=== PATIENT | female | born 1950 | race Caucasian/White ===

== ENCOUNTER 2021-08-11 05:48 | Inpatient (IN) | payer OTHER ==
[2021-08-11] VITALS (14 sets, daily range): BP systolic 143–176; BP diastolic 61–92
[~2021-08-11] VITALS: Ht 154.9 cm; Wt 71.2 kg
[2021-08-11] MEDS ORDERED: SODIUM CHLORIDE 0.9% 1000ML 1,000 ML IV STA (05:54)
[2021-08-11] MEDS ORDERED: CEFTRIAXONE 1 GM in SODIUM CHLORIDE 0.9% 100 ML IV SCH (06:00)
[2021-08-11] MEDS ORDERED: DEXAMETHASONE SOD PHOS 10 MG/1 ML VIAL ONE ×2 (06:15→06:26)
[2021-08-11] MEDS ORDERED: CEFTRIAXONE SOD 1 GM 50 ML IV SCH (06:15)
[2021-08-11] MEDS ORDERED: SODIUM CHLORIDE 0.9% 50ML 50 ML ONE ×2 (06:27→13:58)
[2021-08-11] MEDS ORDERED: CEFTRIAXONE 1 GM VIAL ONE (06:27)
[2021-08-11] MEDS ORDERED: SODIUM CHLORIDE 0.9% 250ML 0 ML ONE (06:34)
[2021-08-11 06:39] LABS: ALBUMIN 2.6 g/dL (3.5-5.0); ALBUMIN/GLOBULIN RATIO 0.6 (0.8-2.0); CALCIUM 9.1 mg/dL (8.4-10.2); CREATININE, SERUM 0.81 mg/dL (0.57-1.11); MAGNESIUM 1.2 MG/DL (1.3-2.1)
[2021-08-11 06:40] LABS: BASOPHILS # (AUTO) 0.1 (0.0-0.1); BASOPHILS % 0.2 % (0.0-1.0); EOSINOPHILS # (AUTO) 0.4 (0.0-0.4); EOSINOPHILS % 1.7 % (0.0-6.0); HEMATOCRIT 30.7 % (34.2-44.1); HEMOGLOBIN 10.3 g/dL (12.0-16.0); LYMPHOCYTES # (AUTO) 1.6 (1.0-3.2); LYMPHOCYTES % 6.7 % (18.0-39.1); MEAN CORPUSCULAR HEMOGLOBIN 29.8 pg (28-32); MEAN CORPUSCULAR HGB CONC 33.6 g/dL (31-35); MEAN CORPUSCULAR VOLUME 88.7 fL (81-99); MONOCYTES # (AUTO) 0.6 (0.2-0.8); MONOCYTES % 2.4 % (4.4-11.3); NEUTROPHILS # (AUTO) 21.3 (2.1-6.9); NEUTROPHILS % 88.4 % (38.7-80.0); PLATELET COUNT 334 x10e3/uL (140-360); RED BLOOD COUNT 3.46 x10e6/uL (3.6-5.1); RED CELL DISTRIBUTION WIDTH 13.9 % (11.7-14.4)
[2021-08-11] MEDS ORDERED: SODIUM CHLORIDE 0.9% 1000ML 1,000 ML IV SCH (06:45)
[2021-08-11] MEDS ORDERED: MAGNESIUM SULF 1GRAM/DEXTROSE 100 ML IV ONE (06:45)
[2021-08-11 06:51] LABS: CREATINE KINASE MB 3.7 ng/mL (0-5.0)
[2021-08-11 07:02] LABS: INR 2.37; PROTHROMBIN TIME 26.3 seconds (11.9-14.5)
[2021-08-11 07:03] LABS: PARTIAL THROMBOPLASTIN TIME 53.9 seconds (23.8-35.5)
[2021-08-11] MEDS ORDERED: DEXMEDETOMIDINE 100 ML IV ONE ×2 (08:15→09:30)
[2021-08-11] MEDS ORDERED: ENOXAPARIN SOD INJ 60 MG/0.6 ML SYR SC ONE (08:15)
[2021-08-11] MEDS ORDERED: ZOLPIDEM TARTRATE 5 MG TAB PO PRN (08:30)
[2021-08-11 08:40] LABS: EOSINOPHILS % (MANUAL) 3 % (0-7); LYMPHOCYTES % (MANUAL) 4 % (19-48); MONOCYTES % (MANUAL) 2 % (3.4-9.0); NEUTROPHILS % (MANUAL) 91 % (40-74); PLATELET ESTIMATE ADEQUATE; PLATELET MORPHOLOGY COMMENT NORMAL; RBC MORPHOLOGY COMMENT NORMAL
[2021-08-11] MEDS ORDERED: Vancomycin IV 0.75 GM in SODIUM CHLORIDE 0.9% 250ML 250 ML IV SCH (09:00)
[2021-08-11] MEDS: VANCOMYCIN IV SCH ×2 (10:50→22:39)
[2021-08-11] MEDS: SODIUM CHLORIDE 0.9% IV SCH ×2 (10:50→22:39)
[2021-08-11] MEDS ORDERED: IOPAMIDOL 370 MG/ML 200 ML INFUS..BTL INJ ONE (13:58)
[2021-08-11] MEDS ORDERED: MEROPENEM 1 GM in SODIUM CHLORIDE 0.9% 100 ML 100 ML IV SCH (14:00)
[2021-08-11] MEDS: MEROPENEM 1 GM in SODIUM CHLORIDE 0.9% 100 ML IV SCH (17:30)
[2021-08-11] MEDS: APIXABAN 5 MG TABLET PO SCH (17:30)
[2021-08-11] MEDS ORDERED: DEXMEDETOMIDINE 400MCG/NS100ML 100 ML IV PRN (20:15)
[2021-08-12] VITALS (18 sets, daily range): BP systolic 106–174; BP diastolic 57–86
[2021-08-12] MEDS: MEROPENEM 1 GM in SODIUM CHLORIDE 0.9% 100 ML IV SCH ×2 (00:06→23:33)
[2021-08-12] MEDS: HYDRALAZINE HCL 20 MG/ML VIAL IV PRN (00:06)
[2021-08-12 06:39] LABS: BASOPHILS # (AUTO) 0.1 (0.0-0.1); BASOPHILS % 0.2 % (0.0-1.0); HEMATOCRIT 27.1 % (34.2-44.1); HEMOGLOBIN 9.1 g/dL (12.0-16.0); LYMPHOCYTES # (AUTO) 0.6 (1.0-3.2); LYMPHOCYTES % 1.9 % (18.0-39.1); MEAN CORPUSCULAR HGB CONC 33.6 g/dL (31-35); MEAN CORPUSCULAR VOLUME 89.4 fL (81-99); MONOCYTES # (AUTO) 1.1 (0.2-0.8); MONOCYTES % 3.5 % (4.4-11.3); NEUTROPHILS # (AUTO) 28.1 (2.1-6.9); NEUTROPHILS % 93.2 % (38.7-80.0); PLATELET COUNT 282 x10e3/uL (140-360); RED BLOOD COUNT 3.03 x10e6/uL (3.6-5.1); RED CELL DISTRIBUTION WIDTH 14.2 % (11.7-14.4)
[2021-08-12 07:24] LABS: ALBUMIN 2.2 g/dL (3.5-5.0); ALBUMIN/GLOBULIN RATIO 0.5 (0.8-2.0); ANION GAP 14.2 mmol/L (8-16); CALCIUM 8.5 mg/dL (8.4-10.2); CREATININE, SERUM 0.63 mg/dL (0.57-1.11); POTASSIUM 4.2 mmol/L (3.5-5.1)
[2021-08-12] MEDS: DEXAMETHASONE SOD PHOS 10 MG/1 ML VIAL IV SCH (08:16)
[2021-08-12] MEDS: ASCORBIC ACID 500 MG TAB PO SCH (08:24)
[2021-08-12] MEDS: APIXABAN 5 MG TABLET PO SCH (08:24)
[2021-08-12] MEDS: ZINC SULFATE 220 MG CAP PO SCH (08:24)
[2021-08-12] MEDS: CHOLECALCIFEROL 1,000 UNIT TAB PO SCH (08:24)
[2021-08-12] MEDS: ENOXAPARIN SOD INJ 60 MG/0.6 ML SYR SC SCH ×2 (09:12→21:35)
[2021-08-12] MEDS: VANCOMYCIN IV SCH ×2 (10:12→21:44)
[2021-08-12] MEDS: SODIUM CHLORIDE 0.9% IV SCH ×2 (10:12→21:44)
[2021-08-12 10:45] LABS: MONOCYTES % (MANUAL) 2 % (3.4-9.0); NEUTROPHILS % (MANUAL) 98 % (40-74)
[2021-08-12 10:46] LABS: PLATELET ESTIMATE ADEQUATE; PLATELET MORPHOLOGY COMMENT NORMAL; RBC MORPHOLOGY COMMENT NORMAL
[2021-08-12] MEDS ORDERED: FUROSEMIDE INJ 10 MG/ML 4 ML VIAL IV ONE (11:00)
[2021-08-13] VITALS (28 sets, daily range): BP systolic 60–177; BP diastolic 36–79
[2021-08-13] MEDS: HYDRALAZINE HCL 20 MG/ML VIAL IV PRN (01:35)
[2021-08-13 05:21] LABS: BASOPHILS # (AUTO) 0.1 (0.0-0.1); BASOPHILS % 0.3 % (0.0-1.0); HEMATOCRIT 28.6 % (34.2-44.1); HEMOGLOBIN 9.2 g/dL (12.0-16.0); LYMPHOCYTES # (AUTO) 0.5 (1.0-3.2); LYMPHOCYTES % 1.7 % (18.0-39.1); MEAN CORPUSCULAR HEMOGLOBIN 29.6 pg (28-32); MEAN CORPUSCULAR HGB CONC 32.2 g/dL (31-35); MONOCYTES # (AUTO) 0.8 (0.2-0.8); MONOCYTES % 2.8 % (4.4-11.3); NEUTROPHILS # (AUTO) 27.5 (2.1-6.9); NEUTROPHILS % 93.4 % (38.7-80.0); PLATELET COUNT 225 x10e3/uL (140-360); RED BLOOD COUNT 3.11 x10e6/uL (3.6-5.1); RED CELL DISTRIBUTION WIDTH 14.7 % (11.7-14.4)
[2021-08-13 05:42] LABS: ALBUMIN 2.3 g/dL (3.5-5.0); ALBUMIN/GLOBULIN RATIO 0.5 (0.8-2.0); ANION GAP 15.9 mmol/L (8-16); CALCIUM 9.3 mg/dL (8.4-10.2); CREATININE, SERUM 0.83 mg/dL (0.57-1.11); POTASSIUM 3.9 mmol/L (3.5-5.1)
[2021-08-13] MEDS: ASCORBIC ACID 500 MG TAB PO SCH (07:35)
[2021-08-13] MEDS: ZINC SULFATE 220 MG CAP PO SCH (07:36)
[2021-08-13] MEDS: CHOLECALCIFEROL 1,000 UNIT TAB PO SCH (07:36)
[2021-08-13] MEDS: DEXAMETHASONE SOD PHOS 10 MG/1 ML VIAL IV SCH (07:40)
[2021-08-13] MEDS: MEROPENEM 1 GM in SODIUM CHLORIDE 0.9% 100 ML IV SCH ×2 (07:40→16:52)
[2021-08-13] MEDS: ENOXAPARIN SOD INJ 60 MG/0.6 ML SYR SC SCH ×2 (07:40→21:09)
[2021-08-13 09:11] LABS: BAND NEUTROPHILS % (MANUAL) 2 %; LYMPHOCYTES % (MANUAL) 1 % (19-48); MONOCYTES % (MANUAL) 2 % (3.4-9.0); NEUTROPHILS % (MANUAL) 95 % (40-74)
[2021-08-13 09:14] LABS: HYPOCHROMASIA SLIGHT; PLATELET ESTIMATE ADEQUATE; PLATELET MORPHOLOGY COMMENT NORMAL; RBC MORPHOLOGY COMMENT NORMAL
[2021-08-13] MEDS: SODIUM CHLORIDE 0.9% IV SCH ×2 (11:17→22:30)
[2021-08-13] MEDS: VANCOMYCIN IV SCH ×2 (11:17→22:30)
[2021-08-13] MEDS ORDERED: NOREPINEPHRINE 8 MG/D5W 250 ML 250 ML IV SCH (15:15)
[2021-08-13] MEDS ORDERED: LACTATED RINGER'S 1,000 ML INJ ONE (16:45)
[2021-08-13] MEDS: FENTANYL 2000MCG/NS 250 250 ML IV SCH (16:52)
[2021-08-13] MEDS ORDERED: LACTATED RINGER'S 1,000 ML ONE (16:52)
[2021-08-13] MEDS: ROCURONIUM 1250MG/NS 250 250 ML IV PRN (16:53)
[2021-08-13] MEDS: MIDAZOLAM HCL 5MG/ML 10ML VIAL 100 ML IV PRN ×2 (16:53→23:13)
[2021-08-13] MEDS ORDERED: SODIUM BICARBONATE 8.4% SYRING 100 ML ONE (17:06)
[2021-08-13] MEDS: VASOPRESSIN 60 UNIT in DEXTROSE 5% 50ML 57 ML IV SCH (17:11)
[2021-08-13] MEDS ORDERED: SODIUM BICARBONATE 8.4% INJ 50 ML SYR IV ONE (18:00)
[2021-08-13 18:16] LABS: ABG HCO3 29 mmol/L (22-26); ABG PCO2 124 mmHg (35-45); ABG PH 6.98 (7.35-7.45); ABG PO2 118 mmHg (80-105); ABG TCO2 33
[2021-08-13 21:08] LABS: ABG HCO3 31 mmol/L (22-26); ABG PCO2 56 mmHg (35-45); ABG PH 7.37 (7.35-7.45); ABG PO2 171 mmHg (80-105); ABG TCO2 33
[2021-08-14] VITALS (26 sets, daily range): BP systolic 74–147; BP diastolic 42–76
[2021-08-14] MEDS: MEROPENEM 1 GM in SODIUM CHLORIDE 0.9% 100 ML IV SCH ×2 (00:39→08:01)
[2021-08-14] MEDS ORDERED: LACTATED RINGER'S 1,000 ML ONE (01:07)
[2021-08-14] MEDS: FENTANYL 2000MCG/NS 250 250 ML IV SCH ×3 (01:15→18:40)
[2021-08-14 06:26] LABS: ALBUMIN 1.7 g/dL (3.5-5.0); ALBUMIN/GLOBULIN RATIO 0.5 (0.8-2.0); ANION GAP 12.9 mmol/L (8-16); CALCIUM 8.4 mg/dL (8.4-10.2); CREATININE, SERUM 1.33 mg/dL (0.57-1.11); POTASSIUM 3.9 mmol/L (3.5-5.1)
[2021-08-14 06:56] LABS: BASOPHILS % 0.1 % (0.0-1.0); EOSINOPHILS % 0.1 % (0.0-6.0); HEMATOCRIT 23.5 % (34.2-44.1); HEMOGLOBIN 7.5 g/dL (12.0-16.0); LYMPHOCYTES # (AUTO) 0.8 (1.0-3.2); LYMPHOCYTES % 4.3 % (18.0-39.1); MEAN CORPUSCULAR HEMOGLOBIN 29.9 pg (28-32); MEAN CORPUSCULAR HGB CONC 31.9 g/dL (31-35); MEAN CORPUSCULAR VOLUME 93.6 fL (81-99); MONOCYTES # (AUTO) 0.5 (0.2-0.8); MONOCYTES % 2.6 % (4.4-11.3); NEUTROPHILS # (AUTO) 17.8 (2.1-6.9); NEUTROPHILS % 91.9 % (38.7-80.0); PLATELET COUNT 162 x10e3/uL (140-360); RED BLOOD COUNT 2.51 x10e6/uL (3.6-5.1); RED CELL DISTRIBUTION WIDTH 14.9 % (11.7-14.4)
[2021-08-14] MEDS: MIDAZOLAM HCL 5MG/ML 10ML VIAL 100 ML IV PRN ×2 (07:15→18:42)
[2021-08-14] MEDS: ZINC SULFATE 220 MG CAP PO SCH (08:02)
[2021-08-14] MEDS: ASCORBIC ACID 500 MG TAB PO SCH (08:02)
[2021-08-14] MEDS: ENOXAPARIN SOD INJ 60 MG/0.6 ML SYR SC SCH ×2 (08:02→21:00)
[2021-08-14] MEDS: DEXAMETHASONE SOD PHOS 10 MG/1 ML VIAL IV SCH (08:02)
[2021-08-14] MEDS: CHOLECALCIFEROL 1,000 UNIT TAB PO SCH (08:02)
[2021-08-14] MEDS: SODIUM CHLORIDE 0.9% IV SCH (10:33)
[2021-08-14] MEDS: VANCOMYCIN IV SCH (10:33)
[2021-08-14] MEDS ORDERED: MEROPENEM 1 GM in SODIUM CHLORIDE 0.9% 100 ML IV SCH ×2 (11:45→20:00)
[2021-08-14] MEDS ORDERED: DEXTROSE 5% 2,000 ML IV ONE (12:00)
[2021-08-14 14:55] LABS: CLARITY,URINE SL CLOUDY (CLEAR); COLOR,URINE AMBER (YELLOW); KETONES,URINE TRACE (NEGATIVE); LEUKOCYTE ESTERASE ,URINE NEGATIVE (NEGATIVE); NITRITE,URINE NEGATIVE (NEGATIVE); PROTEIN,URINE DIPSTICK 2+ (NEGATIVE); URINE UROBILINOGEN 0.2 mg/dL (0.2 - 1)
[2021-08-14 15:06] LABS: BACTERIA,URINE MODERATE /HPF; RBC,URINE 21-50 /HPF (0-5)
[2021-08-14 15:18] LABS: CREATININE,URINE RANDOM 97.65 mg/dL (47-110)
[2021-08-14 15:19] LABS: SODIUM,URINE < 20 mmol/L
[2021-08-14 15:43] LABS: ABG HCO3 26 mmol/L (22-26); ABG PCO2 53 mmHg (35-45); ABG PO2 125 mmHg (80-105); ABG TCO2 27
[2021-08-14] MEDS: VASOPRESSIN 60 UNIT in DEXTROSE 5% 50ML 57 ML IV SCH (17:00)
[2021-08-14] MEDS: MEROPENEM 500 MG in SODIUM CHLORIDE 0.9% 50ML 50 ML IV SCH (17:00)
[2021-08-14] MEDS ORDERED: SUCCINYLCHOLINE CHLORIDE 20 MG/ML 10ML VIAL ONE (17:56)
[2021-08-14] MEDS ORDERED: ETOMIDATE 2 MG/ML 10 ML INJ IV ONE (17:56)
[2021-08-14] MEDS ORDERED: VECURONIUM BROMIDE FOR INJ 20 MG VIAL ONE (17:56)
[2021-08-14] MEDS ORDERED: MIDAZOLAM HCL 2 MG/2 ML VIAL ONE (17:56)
[2021-08-14] MEDS ORDERED: WATER STERILE 10 ML VIAL ONE (17:56)
[2021-08-14] MEDS: DEXTROSE 5% 1,000 ML IV SCH (20:30)
[2021-08-15] VITALS (29 sets, daily range): BP systolic 84–146; BP diastolic 41–73
[2021-08-15] MEDS: MEROPENEM 500 MG in SODIUM CHLORIDE 0.9% 50ML 50 ML IV SCH ×3 (00:12→15:34)
[2021-08-15] MEDS: MIDAZOLAM HCL 5MG/ML 10ML VIAL 100 ML IV PRN ×3 (00:40→15:02)
[2021-08-15 06:28] LABS: BASOPHILS % 0.2 % (0.0-1.0); EOSINOPHILS % 0.1 % (0.0-6.0); HEMOGLOBIN 7.1 g/dL (12.0-16.0); LYMPHOCYTES # (AUTO) 0.9 (1.0-3.2); LYMPHOCYTES % 4.8 % (18.0-39.1); MEAN CORPUSCULAR HEMOGLOBIN 29.1 pg (28-32); MEAN CORPUSCULAR HGB CONC 31.1 g/dL (31-35); MEAN CORPUSCULAR VOLUME 93.4 fL (81-99); MONOCYTES # (AUTO) 0.3 (0.2-0.8); MONOCYTES % 1.7 % (4.4-11.3); NEUTROPHILS % 92.3 % (38.7-80.0); PLATELET COUNT 143 x10e3/uL (140-360); RED BLOOD COUNT 2.44 x10e6/uL (3.6-5.1); RED CELL DISTRIBUTION WIDTH 15.1 % (11.7-14.4)
[2021-08-15] MEDS: DEXTROSE 5% 1,000 ML IV SCH (06:31)
[2021-08-15 06:37] LABS: HEMATOCRIT 22.8 % (34.2-44.1)
[2021-08-15 06:47] LABS: ALBUMIN 1.5 g/dL (3.5-5.0); ALBUMIN/GLOBULIN RATIO 0.4 (0.8-2.0); CALCIUM 7.8 mg/dL (8.4-10.2); CREATININE, SERUM 1.73 mg/dL (0.57-1.11)
[2021-08-15] MEDS: DEXAMETHASONE SOD PHOS 10 MG/1 ML VIAL IV SCH (07:59)
[2021-08-15] MEDS: ASCORBIC ACID 500 MG TAB PO SCH (07:59)
[2021-08-15] MEDS: ENOXAPARIN SOD INJ 60 MG/0.6 ML SYR SC SCH ×2 (08:00→20:59)
[2021-08-15] MEDS: FENTANYL 2000MCG/NS 250 250 ML IV SCH ×2 (08:00→20:00)
[2021-08-15] MEDS: CHOLECALCIFEROL 1,000 UNIT TAB PO SCH (08:00)
[2021-08-15] MEDS: ZINC SULFATE 220 MG CAP PO SCH (08:00)
[2021-08-15 08:54] LABS: ABG HCO3 24 mmol/L (22-26); ABG PCO2 48 mmHg (35-45); ABG PO2 103 mmHg (80-105); ABG TCO2 25
[2021-08-15] MEDS ORDERED: SODIUM CHLORIDE 0.9% 1000ML 1,000 ML IV SCH (10:30)
[2021-08-15] MEDS: VASOPRESSIN 60 UNIT in DEXTROSE 5% 50ML 57 ML IV SCH (17:00)
[2021-08-15] MEDS: ROCURONIUM 1250MG/NS 250 250 ML IV PRN (20:00)
[2021-08-16] VITALS (30 sets, daily range): BP systolic 91–140; BP diastolic 39–61
[2021-08-16 05:06] LABS: BASOPHILS % 0.2 % (0.0-1.0); HEMATOCRIT 24.2 % (34.2-44.1); HEMOGLOBIN 7.6 g/dL (12.0-16.0); LYMPHOCYTES # (AUTO) 0.9 (1.0-3.2); LYMPHOCYTES % 5.1 % (18.0-39.1); MEAN CORPUSCULAR HEMOGLOBIN 29.7 pg (28-32); MEAN CORPUSCULAR HGB CONC 31.4 g/dL (31-35); MEAN CORPUSCULAR VOLUME 94.5 fL (81-99); MONOCYTES # (AUTO) 0.6 (0.2-0.8); MONOCYTES % 3.1 % (4.4-11.3); NEUTROPHILS # (AUTO) 15.9 (2.1-6.9); NEUTROPHILS % 90.5 % (38.7-80.0); PLATELET COUNT 121 x10e3/uL (140-360); RED BLOOD COUNT 2.56 x10e6/uL (3.6-5.1)
[2021-08-16 05:27] LABS: ALBUMIN 1.7 g/dL (3.5-5.0); ALBUMIN/GLOBULIN RATIO 0.5 (0.8-2.0); ANION GAP 11.1 mmol/L (8-16); CALCIUM 7.9 mg/dL (8.4-10.2); CREATININE, SERUM 2.03 mg/dL (0.57-1.11); MAGNESIUM 1.9 MG/DL (1.3-2.1); PHOSPHORUS 4.6 MG/DL (2.3-4.7); POTASSIUM 4.1 mmol/L (3.5-5.1)
[2021-08-16] MEDS: FENTANYL 2000MCG/NS 250 250 ML IV SCH ×2 (06:00→16:41)
[2021-08-16 08:22] LABS: ABG HCO3 27 mmol/L (22-26); ABG PCO2 68 mmHg (35-45); ABG PO2 46 mmHg (80-105); ABG TCO2 29
[2021-08-16] MEDS: CHOLECALCIFEROL 1,000 UNIT TAB PO SCH (09:00)
[2021-08-16] MEDS ORDERED: BUMETANIDE INJ 0.25MG/ML 4ML VIAL IV ONE (09:30)
[2021-08-16] MEDS: DEXAMETHASONE SOD PHOS 10 MG/1 ML VIAL IV SCH (10:08)
[2021-08-16] MEDS: MEROPENEM 500 MG in SODIUM CHLORIDE 0.9% 50ML 50 ML IV SCH ×5 (10:08→23:57)
[2021-08-16] MEDS: ASCORBIC ACID 500 MG TAB PO SCH (10:08)
[2021-08-16] MEDS: ZINC SULFATE 220 MG CAP PO SCH (10:09)
[2021-08-16] MEDS ORDERED: ALBUMIN 5% 250ML 500 ML IV ONE (11:00)
[2021-08-16] MEDS: BUMETANIDE 10 MG in SODIUM CHLORIDE 0.9% 100 ML 60 ML IV SCH ×2 (12:00→22:09)
[2021-08-16] MEDS: MIDAZOLAM HCL 5MG/ML 10ML VIAL 100 ML IV PRN ×3 (12:24→22:10)
[2021-08-16] MEDS ORDERED: SODIUM CHLORIDE 0.9% 1000ML 1,000 ML ONE (13:23)
[2021-08-16 15:59] LABS: ABG HCO3 26 mmol/L (22-26); ABG PCO2 62 mmHg (35-45); ABG PH 7.24 (7.35-7.45); ABG PO2 120 mmHg (80-105); ABG TCO2 28
[2021-08-16] MEDS ORDERED: VASOPRESSIN 60 UNIT in DEXTROSE 5% 50ML 57 ML IV PRN (16:45)
[2021-08-16] MEDS: METOCLOPRAMIDE HCL 10 MG/2ML VIAL IV SCH (22:09)
[2021-08-17] VITALS (29 sets, daily range): BP systolic 111–145; BP diastolic 42–59
[2021-08-17] MEDS ORDERED: ALTEPLASE RECOMBINANT 2 MG/2 ML VIAL IV PRN (00:15)
[2021-08-17] MEDS ORDERED: ALTEPLASE RECOMBINANT 2 MG/2 ML VIAL ONE (00:26)
[2021-08-17] MEDS: FENTANYL 2000MCG/NS 250 250 ML IV SCH ×4 (01:58→22:18)
[2021-08-17] MEDS: MIDAZOLAM HCL 5MG/ML 10ML VIAL 100 ML IV PRN ×4 (03:11→18:14)
[2021-08-17 05:04] LABS: BASOPHILS % 0.1 % (0.0-1.0); HEMOGLOBIN 7.2 g/dL (12.0-16.0); LYMPHOCYTES # (AUTO) 0.9 (1.0-3.2); LYMPHOCYTES % 6.4 % (18.0-39.1); MEAN CORPUSCULAR HEMOGLOBIN 29.8 pg (28-32); MEAN CORPUSCULAR HGB CONC 31.7 g/dL (31-35); MEAN CORPUSCULAR VOLUME 93.8 fL (81-99); MONOCYTES # (AUTO) 0.7 (0.2-0.8); MONOCYTES % 5.3 % (4.4-11.3); NEUTROPHILS # (AUTO) 11.6 (2.1-6.9); NEUTROPHILS % 85.1 % (38.7-80.0); PLATELET COUNT 109 x10e3/uL (140-360); RED BLOOD COUNT 2.42 x10e6/uL (3.6-5.1); RED CELL DISTRIBUTION WIDTH 14.8 % (11.7-14.4)
[2021-08-17 05:06] LABS: HEMATOCRIT 22.7 % (34.2-44.1)
[2021-08-17 05:28] LABS: ALBUMIN 2.4 g/dL (3.5-5.0); ALBUMIN/GLOBULIN RATIO 0.8 (0.8-2.0); ANION GAP 14.3 mmol/L (8-16); CALCIUM 8.1 mg/dL (8.4-10.2); CREATININE, SERUM 2.18 mg/dL (0.57-1.11); POTASSIUM 4.3 mmol/L (3.5-5.1)
[2021-08-17] MEDS: BUMETANIDE 10 MG in SODIUM CHLORIDE 0.9% 100 ML 60 ML IV SCH (07:41)
[2021-08-17] MEDS: MEROPENEM 500 MG in SODIUM CHLORIDE 0.9% 50ML 50 ML IV SCH ×2 (07:53→15:18)
[2021-08-17 08:15] LABS: ABG HCO3 30 mmol/L (22-26); ABG PCO2 64 mmHg (35-45); ABG PH 7.28 (7.35-7.45); ABG PO2 163 mmHg (80-105); ABG TCO2 32
[2021-08-17] MEDS: METOCLOPRAMIDE HCL 10 MG/2ML VIAL IV SCH ×2 (08:48→21:12)
[2021-08-17] MEDS: DEXAMETHASONE SOD PHOS 10 MG/1 ML VIAL IV SCH (08:48)
[2021-08-17] MEDS: ZINC SULFATE 220 MG CAP PO SCH (08:48)
[2021-08-17] MEDS: ASCORBIC ACID 500 MG TAB PO SCH (08:48)
[2021-08-17] MEDS: CHOLECALCIFEROL 1,000 UNIT TAB PO SCH (08:48)
[2021-08-17] MEDS ORDERED: ALBUMIN 5% 0.05 GM/ML BTL IV ONE (09:45)
[2021-08-17] MEDS ORDERED: HEPARIN 25,000 UNIT 1,000 UNIT in DEXTROSE 5% 250ML 250 ML IV SCH (15:15)
[2021-08-17] MEDS ORDERED: HEPARIN SOD (PORCINE) 5,000 UNIT/ML VIAL IV ONE (15:45)
[2021-08-17] MEDS: HEPARIN 25,000 UNIT 1,000 UNIT in DEXTROSE 5% 250ML 250 ML IV SCH (15:56)
[2021-08-17] MEDS: ROCURONIUM 1250MG/NS 250 250 ML IV PRN (23:34)
[2021-08-18] VITALS (25 sets, daily range): BP systolic 108–189; BP diastolic 40–67
[2021-08-18] MEDS: MEROPENEM 500 MG in SODIUM CHLORIDE 0.9% 50ML 50 ML IV SCH ×4 (01:00→23:48)
[2021-08-18 04:39] LABS: BASOPHILS % 0.1 % (0.0-1.0); EOSINOPHILS # (AUTO) 0.1 (0.0-0.4); EOSINOPHILS % 0.4 % (0.0-6.0); LYMPHOCYTES # (AUTO) 0.9 (1.0-3.2); LYMPHOCYTES % 7.1 % (18.0-39.1); MEAN CORPUSCULAR HEMOGLOBIN 29.5 pg (28-32); MEAN CORPUSCULAR HGB CONC 32.4 g/dL (31-35); MONOCYTES # (AUTO) 0.6 (0.2-0.8); MONOCYTES % 4.4 % (4.4-11.3); NEUTROPHILS # (AUTO) 10.7 (2.1-6.9); NEUTROPHILS % 82.3 % (38.7-80.0); PLATELET COUNT 115 x10e3/uL (140-360); RED BLOOD COUNT 2.34 x10e6/uL (3.6-5.1); RED CELL DISTRIBUTION WIDTH 14.8 % (11.7-14.4)
[2021-08-18 04:42] LABS: HEMATOCRIT 21.3 % (34.2-44.1)
[2021-08-18 04:43] LABS: HEMOGLOBIN 6.9 g/dL (12.0-16.0)
[2021-08-18] MEDS: BUMETANIDE 10 MG in SODIUM CHLORIDE 0.9% 100 ML 60 ML IV SCH ×3 (04:55→14:16)
[2021-08-18 04:58] LABS: ALBUMIN 2.5 g/dL (3.5-5.0); ALBUMIN/GLOBULIN RATIO 0.9 (0.8-2.0); ANION GAP 16.9 mmol/L (8-16); CALCIUM 8.1 mg/dL (8.4-10.2); CREATININE, SERUM 1.87 mg/dL (0.57-1.11); POTASSIUM 3.9 mmol/L (3.5-5.1)
[2021-08-18] MEDS: FENTANYL 2000MCG/NS 250 250 ML IV SCH ×3 (05:01→19:40)
[2021-08-18] MEDS: MIDAZOLAM HCL 5MG/ML 10ML VIAL 100 ML IV PRN ×4 (05:01→22:18)
[2021-08-18] MEDS: ZINC SULFATE 220 MG CAP PO SCH (08:18)
[2021-08-18] MEDS: METOCLOPRAMIDE HCL 10 MG/2ML VIAL IV SCH ×2 (08:18→21:51)
[2021-08-18] MEDS: DEXAMETHASONE SOD PHOS 10 MG/1 ML VIAL IV SCH (08:18)
[2021-08-18] MEDS: CHOLECALCIFEROL 1,000 UNIT TAB PO SCH (08:18)
[2021-08-18] MEDS: ASCORBIC ACID 500 MG TAB PO SCH (08:18)
[2021-08-18] MEDS ORDERED: ACETAMINOPHEN 325 MG TAB PO STA (08:37)
[2021-08-18] MEDS ORDERED: SODIUM CHLORIDE 0.9% 250ML 250 ML IV ONE (08:45)
[2021-08-18 09:39] LABS: ABG HCO3 31 mmol/L (22-26); ABG PCO2 47 mmHg (35-45); ABG PH 7.43 (7.35-7.45); ABG PO2 77 mmHg (80-105); ABG TCO2 33
[2021-08-18] MEDS: HEPARIN 25,000 UNIT 1,000 UNIT in DEXTROSE 5% 250ML 250 ML IV SCH (15:30)
[2021-08-18] MEDS: HYDRALAZINE HCL 20 MG/ML VIAL IV PRN (17:54)
[2021-08-18] MEDS: ROCURONIUM 1250MG/NS 250 250 ML IV PRN (17:55)
[2021-08-19] VITALS (26 sets, daily range): BP systolic 108–163; BP diastolic 35–60
[2021-08-19] MEDS: FENTANYL 2000MCG/NS 250 250 ML IV SCH ×3 (02:24→14:21)
[2021-08-19] MEDS: BUMETANIDE 10 MG in SODIUM CHLORIDE 0.9% 100 ML 60 ML IV SCH ×3 (03:08→20:07)
[2021-08-19] MEDS: HEPARIN 25,000 UNIT 1,000 UNIT in DEXTROSE 5% 250ML 250 ML IV SCH (03:23)
[2021-08-19] MEDS: MIDAZOLAM HCL 5MG/ML 10ML VIAL 100 ML IV PRN ×2 (03:59→09:41)
[2021-08-19 06:56] LABS: BASOPHILS % 0.3 % (0.0-1.0); EOSINOPHILS # (AUTO) 0.4 (0.0-0.4); EOSINOPHILS % 2.5 % (0.0-6.0); HEMATOCRIT 26.1 % (34.2-44.1); HEMOGLOBIN 8.8 g/dL (12.0-16.0); LYMPHOCYTES # (AUTO) 1.5 (1.0-3.2); LYMPHOCYTES % 9.4 % (18.0-39.1); MEAN CORPUSCULAR HEMOGLOBIN 28.4 pg (28-32); MEAN CORPUSCULAR HGB CONC 33.7 g/dL (31-35); MEAN CORPUSCULAR VOLUME 84.2 fL (81-99); MONOCYTES # (AUTO) 0.5 (0.2-0.8); MONOCYTES % 3.4 % (4.4-11.3); NEUTROPHILS # (AUTO) 12.1 (2.1-6.9); NEUTROPHILS % 78.5 % (38.7-80.0); PLATELET COUNT 117 x10e3/uL (140-360); RED CELL DISTRIBUTION WIDTH 19.1 % (11.7-14.4)
[2021-08-19 07:02] LABS: ALBUMIN 2.2 g/dL (3.5-5.0); ALBUMIN/GLOBULIN RATIO 0.8 (0.8-2.0); ANION GAP 15.4 mmol/L (8-16); CALCIUM 8.2 mg/dL (8.4-10.2); CREATININE, SERUM 1.49 mg/dL (0.57-1.11); POTASSIUM 3.4 mmol/L (3.5-5.1)
[2021-08-19 09:02] LABS: ABG PCO2 59 mmHg (35-45); ABG PH 7.43 (7.35-7.45); ABG PO2 61 mmHg (80-105)
[2021-08-19 09:03] LABS: ABG HCO3 39 mmol/L (22-26); ABG TCO2 41
[2021-08-19] MEDS: ZINC SULFATE 220 MG CAP PO SCH (09:39)
[2021-08-19] MEDS: CHOLECALCIFEROL 1,000 UNIT TAB PO SCH (09:39)
[2021-08-19] MEDS: MEROPENEM 500 MG in SODIUM CHLORIDE 0.9% 50ML 50 ML IV SCH ×2 (09:39→18:23)
[2021-08-19] MEDS: METOCLOPRAMIDE HCL 10 MG/2ML VIAL IV SCH (09:39)
[2021-08-19] MEDS: ASCORBIC ACID 500 MG TAB PO SCH (09:39)
[2021-08-19] MEDS: NOREPINEPHRINE 8 MG/D5W 250 ML 250 ML IV SCH (10:30)
[2021-08-19] MEDS: LINEZOLID 600 MG/D5W 300ML 300 ML IV SCH (12:40)
[2021-08-19] MEDS: ALBUMIN 25% 12.5GM 0.25 GM/ML BTL IV SCH (12:58)
[2021-08-20] VITALS (24 sets, daily range): BP systolic 99–144; BP diastolic 39–56
[2021-08-20] MEDS: ALBUMIN 25% 12.5GM 0.25 GM/ML BTL IV SCH ×2 (00:18→06:37)
[2021-08-20] MEDS: LINEZOLID 600 MG/D5W 300ML 300 ML IV SCH ×2 (00:18→11:56)
[2021-08-20] MEDS: METOCLOPRAMIDE HCL 10 MG/2ML VIAL IV SCH ×3 (00:18→22:34)
[2021-08-20] MEDS: MEROPENEM 500 MG in SODIUM CHLORIDE 0.9% 50ML 50 ML IV SCH ×3 (00:19→18:04)
[2021-08-20] MEDS: BUMETANIDE 10 MG in SODIUM CHLORIDE 0.9% 100 ML 60 ML IV SCH (06:38)
[2021-08-20 07:05] LABS: BASOPHILS % 0.2 % (0.0-1.0); EOSINOPHILS # (AUTO) 1.7 (0.0-0.4); EOSINOPHILS % 10.8 % (0.0-6.0); HEMATOCRIT 25.5 % (34.2-44.1); LYMPHOCYTES # (AUTO) 1.4 (1.0-3.2); LYMPHOCYTES % 9.1 % (18.0-39.1); MEAN CORPUSCULAR HEMOGLOBIN 27.4 pg (28-32); MEAN CORPUSCULAR HGB CONC 31.4 g/dL (31-35); MEAN CORPUSCULAR VOLUME 87.3 fL (81-99); MONOCYTES # (AUTO) 0.5 (0.2-0.8); NEUTROPHILS # (AUTO) 11.2 (2.1-6.9); NEUTROPHILS % 72.7 % (38.7-80.0); PLATELET COUNT 132 x10e3/uL (140-360); RED BLOOD COUNT 2.92 x10e6/uL (3.6-5.1); RED CELL DISTRIBUTION WIDTH 18.7 % (11.7-14.4)
[2021-08-20 07:24] LABS: ALBUMIN 3.5 g/dL (3.5-5.0); ALBUMIN/GLOBULIN RATIO 1.3 (0.8-2.0); ANION GAP 15.5 mmol/L (8-16); CALCIUM 8.8 mg/dL (8.4-10.2); CREATININE, SERUM 1.43 mg/dL (0.57-1.11); POTASSIUM 3.5 mmol/L (3.5-5.1)
[2021-08-20] MEDS: CHOLECALCIFEROL 1,000 UNIT TAB PO SCH (09:00)
[2021-08-20 09:02] LABS: ABG HCO3 44 mmol/L (22-26); ABG PCO2 62 mmHg (35-45); ABG PH 7.45 (7.35-7.45); ABG PO2 58 mmHg (80-105); ABG TCO2 45
[2021-08-20] MEDS: NOREPINEPHRINE 8 MG/D5W 250 ML 250 ML IV SCH (10:30)
[2021-08-20] MEDS: MIDAZOLAM HCL 5MG/ML 10ML VIAL 100 ML IV PRN ×2 (10:45→15:39)
[2021-08-20] MEDS: FENTANYL 2000MCG/NS 250 250 ML IV SCH (10:45)
[2021-08-20] MEDS: ZINC SULFATE 220 MG CAP PO SCH (11:45)
[2021-08-20] MEDS: ASCORBIC ACID 500 MG TAB PO SCH (11:45)
[2021-08-20] MEDS: HEPARIN 25,000 UNIT 1,000 UNIT in DEXTROSE 5% 250ML 250 ML IV SCH (19:37)
[2021-08-21] VITALS (24 sets, daily range): BP systolic 90–144; BP diastolic 38–56
[2021-08-21] MEDS: MEROPENEM 500 MG in SODIUM CHLORIDE 0.9% 50ML 50 ML IV SCH ×4 (00:46→23:44)
[2021-08-21] MEDS: LINEZOLID 600 MG/D5W 300ML 300 ML IV SCH ×3 (00:46→23:43)
[2021-08-21 06:30] LABS: BASOPHILS % 0.2 % (0.0-1.0); EOSINOPHILS # (AUTO) 1.3 (0.0-0.4); EOSINOPHILS % 10.2 % (0.0-6.0); HEMATOCRIT 24.4 % (34.2-44.1); HEMOGLOBIN 7.8 g/dL (12.0-16.0); LYMPHOCYTES # (AUTO) 0.9 (1.0-3.2); LYMPHOCYTES % 7.1 % (18.0-39.1); MEAN CORPUSCULAR HEMOGLOBIN 28.5 pg (28-32); MEAN CORPUSCULAR VOLUME 89.1 fL (81-99); MONOCYTES # (AUTO) 0.4 (0.2-0.8); MONOCYTES % 3.3 % (4.4-11.3); NEUTROPHILS # (AUTO) 9.8 (2.1-6.9); NEUTROPHILS % 76.3 % (38.7-80.0); PLATELET COUNT 130 x10e3/uL (140-360); RED BLOOD COUNT 2.74 x10e6/uL (3.6-5.1); RED CELL DISTRIBUTION WIDTH 18.6 % (11.7-14.4)
[2021-08-21 07:05] LABS: ALBUMIN 2.9 g/dL (3.5-5.0); ANION GAP 14.9 mmol/L (8-16); CALCIUM 8.8 mg/dL (8.4-10.2); CREATININE, SERUM 1.36 mg/dL (0.57-1.11); POTASSIUM 3.9 mmol/L (3.5-5.1)
[2021-08-21 07:07] LABS: ABG PH 7.38 (7.35-7.45)
[2021-08-21 07:08] LABS: ABG HCO3 44 mmol/L (22-26); ABG PCO2 75 mmHg (35-45); ABG PO2 63 mmHg (80-105); ABG TCO2 46
[2021-08-21] MEDS: ASCORBIC ACID 500 MG TAB PO SCH (09:00)
[2021-08-21] MEDS: METOCLOPRAMIDE HCL 10 MG/2ML VIAL IV SCH ×2 (09:00→20:42)
[2021-08-21] MEDS: ZINC SULFATE 220 MG CAP PO SCH (09:00)
[2021-08-21] MEDS: CHOLECALCIFEROL 1,000 UNIT TAB PO SCH (09:00)
[2021-08-21] MEDS: NOREPINEPHRINE 8 MG/D5W 250 ML 250 ML IV SCH (10:30)
[2021-08-21] MEDS: MIDAZOLAM HCL 5MG/ML 10ML VIAL 100 ML IV PRN (11:47)
[2021-08-21] MEDS: FENTANYL 2000MCG/NS 250 250 ML IV SCH (13:25)
[2021-08-21] MEDS: HEPARIN 25,000 UNIT 1,000 UNIT in DEXTROSE 5% 250ML 250 ML IV SCH (19:40)
[2021-08-22] VITALS (23 sets, daily range): BP systolic 92–129; BP diastolic 38–64
[2021-08-22 06:12] LABS: BASOPHILS % 0.2 % (0.0-1.0); EOSINOPHILS # (AUTO) 1.3 (0.0-0.4); EOSINOPHILS % 8.2 % (0.0-6.0); HEMOGLOBIN 8.1 g/dL (12.0-16.0); LYMPHOCYTES # (AUTO) 0.9 (1.0-3.2); LYMPHOCYTES % 5.7 % (18.0-39.1); MEAN CORPUSCULAR HEMOGLOBIN 27.9 pg (28-32); MEAN CORPUSCULAR VOLUME 93.1 fL (81-99); MONOCYTES # (AUTO) 0.6 (0.2-0.8); MONOCYTES % 3.8 % (4.4-11.3); NEUTROPHILS # (AUTO) 12.8 (2.1-6.9); NEUTROPHILS % 79.6 % (38.7-80.0); PLATELET COUNT 148 x10e3/uL (140-360); RED CELL DISTRIBUTION WIDTH 18.6 % (11.7-14.4)
[2021-08-22 06:37] LABS: ALBUMIN 2.8 g/dL (3.5-5.0); ALBUMIN/GLOBULIN RATIO 0.8 (0.8-2.0); ANION GAP 17.9 mmol/L (8-16); CALCIUM 9.1 mg/dL (8.4-10.2); CREATININE, SERUM 1.41 mg/dL (0.57-1.11); POTASSIUM 4.9 mmol/L (3.5-5.1)
[2021-08-22] MEDS: MEROPENEM 500 MG in SODIUM CHLORIDE 0.9% 50ML 50 ML IV SCH ×3 (08:18→23:47)
[2021-08-22 08:35] LABS: ABG PH 7.25 (7.35-7.45)
[2021-08-22 08:36] LABS: ABG HCO3 46 mmol/L (22-26); ABG PCO2 106 mmHg (35-45); ABG PO2 81 mmHg (80-105); ABG TCO2 49
[2021-08-22] MEDS: CHOLECALCIFEROL 1,000 UNIT TAB PO SCH (09:00)
[2021-08-22] MEDS: ZINC SULFATE 220 MG CAP PO SCH (09:03)
[2021-08-22] MEDS: METOCLOPRAMIDE HCL 10 MG/2ML VIAL IV SCH ×2 (09:03→23:40)
[2021-08-22] MEDS: ASCORBIC ACID 500 MG TAB PO SCH (09:03)
[2021-08-22] MEDS: MIDAZOLAM HCL 5MG/ML 10ML VIAL 100 ML IV PRN ×2 (09:59→14:47)
[2021-08-22] MEDS: FENTANYL 2000MCG/NS 250 250 ML IV SCH (10:21)
[2021-08-22] MEDS: NOREPINEPHRINE 8 MG/D5W 250 ML 250 ML IV SCH (10:30)
[2021-08-22] MEDS: LINEZOLID 600 MG/D5W 300ML 300 ML IV SCH ×2 (15:13→23:40)
[2021-08-22] MEDS: HEPARIN 25,000 UNIT 1,000 UNIT in DEXTROSE 5% 250ML 250 ML IV SCH (15:30)
[2021-08-22] MEDS: BUMETANIDE INJ 0.25MG/ML 4ML VIAL IV SCH ×2 (18:07→23:40)
[2021-08-23] VITALS (25 sets, daily range): BP systolic 93–141; BP diastolic 13–71
[2021-08-23] MEDS: BUMETANIDE INJ 0.25MG/ML 4ML VIAL IV SCH (06:00)
[2021-08-23 06:17] LABS: BASOPHILS % 0.2 % (0.0-1.0); EOSINOPHILS # (AUTO) 1.2 (0.0-0.4); EOSINOPHILS % 6.6 % (0.0-6.0); HEMATOCRIT 27.2 % (34.2-44.1); HEMOGLOBIN 7.9 g/dL (12.0-16.0); LYMPHOCYTES # (AUTO) 1.1 (1.0-3.2); LYMPHOCYTES % 6.5 % (18.0-39.1); MEAN CORPUSCULAR HEMOGLOBIN 27.7 pg (28-32); MEAN CORPUSCULAR VOLUME 95.4 fL (81-99); MONOCYTES # (AUTO) 0.7 (0.2-0.8); MONOCYTES % 3.9 % (4.4-11.3); NEUTROPHILS # (AUTO) 14.1 (2.1-6.9); NEUTROPHILS % 80.9 % (38.7-80.0); PLATELET COUNT 178 x10e3/uL (140-360); RED BLOOD COUNT 2.85 x10e6/uL (3.6-5.1); RED CELL DISTRIBUTION WIDTH 18.5 % (11.7-14.4)
[2021-08-23 06:43] LABS: ALBUMIN 2.5 g/dL (3.5-5.0); ALBUMIN/GLOBULIN RATIO 0.7 (0.8-2.0); ANION GAP 15.6 mmol/L (8-16); CALCIUM 9.2 mg/dL (8.4-10.2); CREATININE, SERUM 1.26 mg/dL (0.57-1.11); POTASSIUM 5.6 mmol/L (3.5-5.1)
[2021-08-23 08:21] LABS: ABG HCO3 46 mmol/L (22-26); ABG PCO2 123 mmHg (35-45); ABG PH 7.18 (7.35-7.45); ABG PO2 71 mmHg (80-105); ABG TCO2 50
[2021-08-23] MEDS: ASCORBIC ACID 500 MG TAB PO SCH (09:00)
[2021-08-23] MEDS: ZINC SULFATE 220 MG CAP PO SCH (09:00)
[2021-08-23] MEDS: MIDAZOLAM HCL 5MG/ML 10ML VIAL 100 ML IV PRN (11:25)
[2021-08-23] MEDS ORDERED: SOD POLYSTYRENE SULFONATE SUSP 15 GM/60 ML BTL PO ONE (13:15)
[2021-08-23] MEDS ORDERED: LACTULOSE SYRUP 20 GM/30 ML UDC PO ONE (13:15)
[2021-08-23] MEDS: METOCLOPRAMIDE HCL 10 MG/2ML VIAL IV SCH ×2 (13:16→22:55)
[2021-08-23] MEDS: MICAFUNGIN SODIUM 100 ML IV SCH (13:16)
[2021-08-23] MEDS: MEROPENEM 500 MG in SODIUM CHLORIDE 0.9% 50ML 50 ML IV SCH ×2 (14:29→22:55)
[2021-08-23] MEDS: LINEZOLID 600 MG/D5W 300ML 300 ML IV SCH ×2 (14:29→22:55)
[2021-08-23] MEDS: HEPARIN 25,000 UNIT 1,000 UNIT in DEXTROSE 5% 250ML 250 ML IV SCH (15:30)
[2021-08-23 16:01] LABS: BASOPHILS % 0.2 % (0.0-1.0); EOSINOPHILS # (AUTO) 0.9 (0.0-0.4); EOSINOPHILS % 4.3 % (0.0-6.0); HEMATOCRIT 25.4 % (34.2-44.1); HEMOGLOBIN 7.5 g/dL (12.0-16.0); LYMPHOCYTES # (AUTO) 1.2 (1.0-3.2); LYMPHOCYTES % 5.9 % (18.0-39.1); MEAN CORPUSCULAR HEMOGLOBIN 27.7 pg (28-32); MEAN CORPUSCULAR HGB CONC 29.5 g/dL (31-35); MEAN CORPUSCULAR VOLUME 93.7 fL (81-99); MONOCYTES # (AUTO) 0.8 (0.2-0.8); NEUTROPHILS # (AUTO) 16.6 (2.1-6.9); NEUTROPHILS % 83.4 % (38.7-80.0); PLATELET COUNT 221 x10e3/uL (140-360); RED BLOOD COUNT 2.71 x10e6/uL (3.6-5.1); RED CELL DISTRIBUTION WIDTH 18.6 % (11.7-14.4)
[2021-08-23] MEDS: FENTANYL 2000MCG/NS 250 250 ML IV SCH (17:06)
[2021-08-23] MEDS: NOREPINEPHRINE 8 MG/D5W 250 ML 250 ML IV SCH (22:55)
[2021-08-24] VITALS (25 sets, daily range): BP systolic 92–164; BP diastolic 39–62
[2021-08-24] MEDS: MEROPENEM 500 MG in SODIUM CHLORIDE 0.9% 50ML 50 ML IV SCH ×3 (06:02→23:42)
[2021-08-24 06:23] LABS: BASOPHILS % 0.2 % (0.0-1.0); EOSINOPHILS % 4.9 % (0.0-6.0); HEMATOCRIT 24.1 % (34.2-44.1); HEMOGLOBIN 7.1 g/dL (12.0-16.0); LYMPHOCYTES # (AUTO) 0.9 (1.0-3.2); LYMPHOCYTES % 4.6 % (18.0-39.1); MEAN CORPUSCULAR HEMOGLOBIN 27.6 pg (28-32); MEAN CORPUSCULAR HGB CONC 29.5 g/dL (31-35); MEAN CORPUSCULAR VOLUME 93.8 fL (81-99); MONOCYTES # (AUTO) 0.7 (0.2-0.8); MONOCYTES % 3.7 % (4.4-11.3); NEUTROPHILS # (AUTO) 16.6 (2.1-6.9); NEUTROPHILS % 85.4 % (38.7-80.0); PLATELET COUNT 205 x10e3/uL (140-360); RED BLOOD COUNT 2.57 x10e6/uL (3.6-5.1); RED CELL DISTRIBUTION WIDTH 18.7 % (11.7-14.4)
[2021-08-24 06:53] LABS: ALBUMIN 2.2 g/dL (3.5-5.0); ALBUMIN/GLOBULIN RATIO 0.6 (0.8-2.0); ANION GAP 12.5 mmol/L (8-16); CALCIUM 8.9 mg/dL (8.4-10.2); CREATININE, SERUM 1.14 mg/dL (0.57-1.11); POTASSIUM 4.5 mmol/L (3.5-5.1)
[2021-08-24 07:19] LABS: % IRON SATURATION 9 % (15-50); IRON 16 ug/dL (50-170); TOTAL IRON BINDING CAPACITY 181 ug/dL (261-478); TRANSFERRIN 129 mg/dL (180-382)
[2021-08-24] MEDS: MIDAZOLAM HCL 5MG/ML 10ML VIAL 100 ML IV PRN ×2 (07:45→09:17)
[2021-08-24 08:34] LABS: ABG PH 7.36 (7.35-7.45)
[2021-08-24 08:35] LABS: ABG HCO3 41 mmol/L (22-26); ABG PCO2 73 mmHg (35-45); ABG PO2 77 mmHg (80-105); ABG TCO2 44
[2021-08-24] MEDS: ASCORBIC ACID 500 MG TAB PO SCH (09:05)
[2021-08-24] MEDS: ZINC SULFATE 220 MG CAP PO SCH (09:05)
[2021-08-24] MEDS: METOCLOPRAMIDE HCL 10 MG/2ML VIAL IV SCH ×4 (09:05→23:42)
[2021-08-24] MEDS: MICAFUNGIN SODIUM 100 ML IV SCH (09:16)
[2021-08-24] MEDS: FENTANYL 2000MCG/NS 250 250 ML IV SCH (09:17)
[2021-08-24] MEDS: LINEZOLID 600 MG/D5W 300ML 300 ML IV SCH ×2 (11:30→23:42)
[2021-08-24] MEDS: NOREPINEPHRINE 8 MG/D5W 250 ML 250 ML IV SCH (16:33)
[2021-08-24 18:44] LABS: PARTIAL THROMBOPLASTIN TIME 38.8 seconds (23.8-35.5)
[2021-08-24 18:48] LABS: INR 1.21; PROTHROMBIN TIME 15.8 seconds (11.9-14.5)
[2021-08-24] MEDS: HEPARIN 25,000 UNIT 1,000 UNIT in DEXTROSE 5% 250ML 250 ML IV SCH (23:41)
[2021-08-25] VITALS (23 sets, daily range): BP systolic 85–157; BP diastolic 41–63
[2021-08-25 06:39] LABS: BASOPHILS % 0.2 % (0.0-1.0); EOSINOPHILS % 6.5 % (0.0-6.0); LYMPHOCYTES % 6.4 % (18.0-39.1); MEAN CORPUSCULAR HEMOGLOBIN 28.3 pg (28-32); MEAN CORPUSCULAR HGB CONC 31.1 g/dL (31-35); MONOCYTES # (AUTO) 0.6 (0.2-0.8); MONOCYTES % 4.2 % (4.4-11.3); NEUTROPHILS # (AUTO) 12.2 (2.1-6.9); NEUTROPHILS % 81.8 % (38.7-80.0); PLATELET COUNT 196 x10e3/uL (140-360); RED BLOOD COUNT 2.44 x10e6/uL (3.6-5.1); RED CELL DISTRIBUTION WIDTH 18.6 % (11.7-14.4)
[2021-08-25] MEDS: METOCLOPRAMIDE HCL 10 MG/2ML VIAL IV SCH ×3 (06:40→18:23)
[2021-08-25] MEDS: MEROPENEM 500 MG in SODIUM CHLORIDE 0.9% 50ML 50 ML IV SCH ×3 (06:40→22:36)
[2021-08-25 07:03] LABS: ALBUMIN 1.9 g/dL (3.5-5.0); ALBUMIN/GLOBULIN RATIO 0.5 (0.8-2.0); ANION GAP 10.1 mmol/L (8-16); CREATININE, SERUM 0.85 mg/dL (0.57-1.11); POTASSIUM 4.1 mmol/L (3.5-5.1)
[2021-08-25 07:12] LABS: HEMATOCRIT 22.2 % (34.2-44.1); HEMOGLOBIN 6.9 g/dL (12.0-16.0)
[2021-08-25] MEDS ORDERED: SODIUM CHLORIDE 0.9% 250ML 250 ML IV ONE (08:45)
[2021-08-25] MEDS ORDERED: IRON SUCROSE 100 MG in SODIUM CHLORIDE 0.9% 100 ML 100 ML IV SCH (09:00)
[2021-08-25 09:15] LABS: ABG HCO3 40 mmol/L (22-26); ABG PCO2 69 mmHg (35-45); ABG PH 7.37 (7.35-7.45); ABG PO2 62 mmHg (80-105); ABG TCO2 42
[2021-08-25] MEDS: ZINC SULFATE 220 MG CAP PO SCH (09:32)
[2021-08-25] MEDS: MICAFUNGIN SODIUM 100 ML IV SCH (09:32)
[2021-08-25] MEDS: ASCORBIC ACID 500 MG TAB PO SCH (09:32)
[2021-08-25] MEDS: NOREPINEPHRINE 8 MG/D5W 250 ML 250 ML IV SCH (13:01)
[2021-08-25] MEDS: LINEZOLID 600 MG/D5W 300ML 300 ML IV SCH ×2 (13:01→22:37)
[2021-08-25] MEDS: FENTANYL 2000MCG/NS 250 250 ML IV SCH ×2 (13:01→15:45)
[2021-08-25] MEDS: IRON SUCROSE 100 MG in SODIUM CHLORIDE 0.9% 100 ML 100 ML IV SCH (14:56)
[2021-08-25] MEDS: MIDAZOLAM HCL 5MG/ML 10ML VIAL 100 ML IV PRN (15:44)
[2021-08-26] VITALS (25 sets, daily range): BP systolic 92–125; BP diastolic 47–61
[2021-08-26] MEDS: METOCLOPRAMIDE HCL 10 MG/2ML VIAL IV SCH ×5 (03:56→23:51)
[2021-08-26] MEDS: MEROPENEM 500 MG in SODIUM CHLORIDE 0.9% 50ML 50 ML IV SCH ×3 (06:06→23:51)
[2021-08-26 06:44] LABS: BASOPHILS % 0.2 % (0.0-1.0); EOSINOPHILS # (AUTO) 0.8 (0.0-0.4); EOSINOPHILS % 6.4 % (0.0-6.0); HEMATOCRIT 27.5 % (34.2-44.1); HEMOGLOBIN 8.4 g/dL (12.0-16.0); LYMPHOCYTES % 7.4 % (18.0-39.1); MEAN CORPUSCULAR HEMOGLOBIN 28.2 pg (28-32); MEAN CORPUSCULAR HGB CONC 30.5 g/dL (31-35); MEAN CORPUSCULAR VOLUME 92.3 fL (81-99); MONOCYTES # (AUTO) 0.5 (0.2-0.8); NEUTROPHILS # (AUTO) 10.5 (2.1-6.9); NEUTROPHILS % 81.3 % (38.7-80.0); PLATELET COUNT 187 x10e3/uL (140-360); RED BLOOD COUNT 2.98 x10e6/uL (3.6-5.1); RED CELL DISTRIBUTION WIDTH 18.2 % (11.7-14.4)
[2021-08-26 07:20] LABS: ALBUMIN 1.8 g/dL (3.5-5.0); ALBUMIN/GLOBULIN RATIO 0.5 (0.8-2.0); ANION GAP 12.8 mmol/L (8-16); CREATININE, SERUM 0.84 mg/dL (0.57-1.11); POTASSIUM 3.8 mmol/L (3.5-5.1)
[2021-08-26 08:37] LABS: ABG PH 7.29 (7.35-7.45)
[2021-08-26 08:38] LABS: ABG HCO3 36 mmol/L (22-26); ABG PCO2 76 mmHg (35-45); ABG PO2 47 mmHg (80-105); ABG TCO2 39
[2021-08-26] MEDS: NOREPINEPHRINE 8 MG/D5W 250 ML 250 ML IV SCH (10:26)
[2021-08-26] MEDS: ASCORBIC ACID 500 MG TAB PO SCH (10:26)
[2021-08-26] MEDS: LINEZOLID 600 MG/D5W 300ML 300 ML IV SCH ×2 (10:26→23:51)
[2021-08-26] MEDS: MICAFUNGIN SODIUM 100 ML IV SCH (10:26)
[2021-08-26] MEDS: ZINC SULFATE 220 MG CAP PO SCH (10:26)
[2021-08-26] MEDS: FENTANYL 2000MCG/NS 250 250 ML IV SCH ×2 (10:26→18:37)
[2021-08-26 13:46] LABS: ABG HCO3 37 mmol/L (22-26); ABG PCO2 91 mmHg (35-45); ABG PH 7.22 (7.35-7.45); ABG PO2 69 mmHg (80-105); ABG TCO2 40
[2021-08-26] MEDS: IRON SUCROSE 100 MG in SODIUM CHLORIDE 0.9% 100 ML 100 ML IV SCH (14:34)
[2021-08-26] MEDS: MIDAZOLAM HCL 5MG/ML 10ML VIAL 100 ML IV PRN (18:37)
[2021-08-26] MEDS: ROCURONIUM 1250MG/NS 250 250 ML IV PRN (18:37)
[2021-08-26] MEDS: HEPARIN 25,000 UNIT 1,000 UNIT in DEXTROSE 5% 250ML 250 ML IV SCH (18:45)
[2021-08-27] VITALS (26 sets, daily range): BP systolic 90–151; BP diastolic 46–63
[2021-08-27] MEDS: MEROPENEM 500 MG in SODIUM CHLORIDE 0.9% 50ML 50 ML IV SCH ×3 (06:08→21:58)
[2021-08-27] MEDS: METOCLOPRAMIDE HCL 10 MG/2ML VIAL IV SCH ×3 (06:08→17:19)
[2021-08-27 06:25] LABS: BASOPHILS # (AUTO) 0.1 (0.0-0.1); BASOPHILS % 0.4 % (0.0-1.0); EOSINOPHILS # (AUTO) 0.5 (0.0-0.4); EOSINOPHILS % 3.1 % (0.0-6.0); HEMATOCRIT 27.4 % (34.2-44.1); HEMOGLOBIN 8.3 g/dL (12.0-16.0); LYMPHOCYTES % 5.6 % (18.0-39.1); MEAN CORPUSCULAR HEMOGLOBIN 27.9 pg (28-32); MEAN CORPUSCULAR HGB CONC 30.3 g/dL (31-35); MEAN CORPUSCULAR VOLUME 91.9 fL (81-99); MONOCYTES # (AUTO) 0.7 (0.2-0.8); MONOCYTES % 4.2 % (4.4-11.3); NEUTROPHILS # (AUTO) 14.8 (2.1-6.9); NEUTROPHILS % 85.7 % (38.7-80.0); PLATELET COUNT 192 x10e3/uL (140-360); RED BLOOD COUNT 2.98 x10e6/uL (3.6-5.1); RED CELL DISTRIBUTION WIDTH 17.7 % (11.7-14.4)
[2021-08-27 06:45] LABS: ALBUMIN 1.6 g/dL (3.5-5.0); ANION GAP 12.9 mmol/L (8-16); CALCIUM 9.2 mg/dL (8.4-10.2); POTASSIUM 3.9 mmol/L (3.5-5.1)
[2021-08-27 07:09] LABS: CREATININE, SERUM 1.03 mg/dL (0.57-1.11)
[2021-08-27 07:11] LABS: ALBUMIN/GLOBULIN RATIO 0.3 (0.8-2.0)
[2021-08-27] MEDS: FENTANYL 2000MCG/NS 250 250 ML IV SCH ×2 (07:40→20:42)
[2021-08-27] MEDS: MIDAZOLAM HCL 5MG/ML 10ML VIAL 100 ML IV PRN ×3 (07:40→23:39)
[2021-08-27 08:14] LABS: ABG HCO3 37 mmol/L (22-26); ABG PCO2 88 mmHg (35-45); ABG PH 7.23 (7.35-7.45); ABG PO2 60 mmHg (80-105); ABG TCO2 39
[2021-08-27] MEDS ORDERED: BUMETANIDE 1 MG TAB PO ONE (09:00)
[2021-08-27] MEDS ORDERED: ALBUMIN 25% 25GM 100ML 0.25 GM/ML BTL IV SCH (09:00)
[2021-08-27] MEDS ORDERED: BUMETANIDE INJ 0.25MG/ML 4ML VIAL IV ONE (09:45)
[2021-08-27] MEDS ORDERED: BUMETANIDE 10 MG in SODIUM CHLORIDE 0.9% 100 ML 60 ML IV SCH (10:00)
[2021-08-27] MEDS: ALBUMIN 25% 12.5GM 50ML 100 ML IV SCH ×2 (10:07→17:20)
[2021-08-27] MEDS: ZINC SULFATE 220 MG CAP PO SCH (10:07)
[2021-08-27] MEDS: MICAFUNGIN SODIUM 100 ML IV SCH (10:07)
[2021-08-27] MEDS: ASCORBIC ACID 500 MG TAB PO SCH (10:07)
[2021-08-27] MEDS: LINEZOLID 600 MG/D5W 300ML 300 ML IV SCH ×2 (11:32→22:59)
[2021-08-27] MEDS: IRON SUCROSE 100 MG in SODIUM CHLORIDE 0.9% 100 ML 100 ML IV SCH (13:00)
[2021-08-27] MEDS: BUMETANIDE 10 MG in SODIUM CHLORIDE 0.9% 100 ML 60 ML IV SCH ×2 (17:18→21:58)
[2021-08-27 18:16] LABS: ANION GAP 11.9 mmol/L (8-16); CALCIUM 8.9 mg/dL (8.4-10.2); CREATININE, SERUM 1.06 mg/dL (0.57-1.11); MAGNESIUM 1.4 MG/DL (1.3-2.1); POTASSIUM 3.9 mmol/L (3.5-5.1)
[2021-08-27] MEDS: HEPARIN 25,000 UNIT 1,000 UNIT in DEXTROSE 5% 250ML 250 ML IV SCH (18:45)
[2021-08-28] VITALS (23 sets, daily range): BP systolic 97–151; BP diastolic 26–65
[2021-08-28] MEDS: METOCLOPRAMIDE HCL 10 MG/2ML VIAL IV SCH ×4 (00:58→18:47)
[2021-08-28] MEDS: ALBUMIN 25% 12.5GM 50ML 100 ML IV SCH (01:09)
[2021-08-28] MEDS: BUMETANIDE 10 MG in SODIUM CHLORIDE 0.9% 100 ML 60 ML IV SCH ×4 (02:24→18:47)
[2021-08-28] MEDS: HEPARIN 25,000 UNIT 1,000 UNIT in DEXTROSE 5% 250ML 250 ML IV SCH ×2 (02:26→18:45)
[2021-08-28] MEDS: NOREPINEPHRINE 8 MG/D5W 250 ML 250 ML IV SCH ×2 (02:42→05:53)
[2021-08-28] MEDS: FENTANYL 2000MCG/NS 250 250 ML IV SCH ×2 (04:12→07:30)
[2021-08-28] MEDS: MIDAZOLAM HCL 5MG/ML 10ML VIAL 100 ML IV PRN ×2 (04:13→07:30)
[2021-08-28] MEDS: MEROPENEM 500 MG in SODIUM CHLORIDE 0.9% 50ML 50 ML IV SCH ×2 (05:42→13:57)
[2021-08-28] MEDS: ROCURONIUM 1250MG/NS 250 250 ML IV PRN (05:50)
[2021-08-28 06:26] LABS: BASOPHILS % 0.2 % (0.0-1.0); EOSINOPHILS # (AUTO) 0.5 (0.0-0.4); HEMATOCRIT 26.5 % (34.2-44.1); HEMOGLOBIN 7.8 g/dL (12.0-16.0); LYMPHOCYTES # (AUTO) 1.2 (1.0-3.2); LYMPHOCYTES % 7.1 % (18.0-39.1); MEAN CORPUSCULAR HGB CONC 29.4 g/dL (31-35); MONOCYTES # (AUTO) 0.7 (0.2-0.8); MONOCYTES % 4.1 % (4.4-11.3); NEUTROPHILS # (AUTO) 13.9 (2.1-6.9); NEUTROPHILS % 84.7 % (38.7-80.0); PLATELET COUNT 190 x10e3/uL (140-360); RED BLOOD COUNT 2.79 x10e6/uL (3.6-5.1); RED CELL DISTRIBUTION WIDTH 17.7 % (11.7-14.4)
[2021-08-28 06:50] LABS: ALBUMIN 2.5 g/dL (3.5-5.0); ALBUMIN/GLOBULIN RATIO 0.7 (0.8-2.0); ANION GAP 14.8 mmol/L (8-16); CALCIUM 9.1 mg/dL (8.4-10.2); CREATININE, SERUM 1.15 mg/dL (0.57-1.11); POTASSIUM 3.8 mmol/L (3.5-5.1)
[2021-08-28 08:10] LABS: ABG HCO3 36 mmol/L (22-26); ABG PCO2 89 mmHg (35-45); ABG PH 7.21 (7.35-7.45); ABG PO2 69 mmHg (80-105); ABG TCO2 38
[2021-08-28] MEDS: ZINC SULFATE 220 MG CAP PO SCH (09:21)
[2021-08-28] MEDS: ASCORBIC ACID 500 MG TAB PO SCH (09:21)
[2021-08-28] MEDS: MICAFUNGIN SODIUM 100 ML IV SCH (09:21)
[2021-08-28] MEDS ORDERED: ALBUMIN 25% 25GM 100ML 0.25 GM/ML BTL IV SCH (13:00)
[2021-08-28] MEDS: IRON SUCROSE 100 MG in SODIUM CHLORIDE 0.9% 100 ML 100 ML IV SCH (13:56)
[2021-08-28] MEDS: ALBUMIN 25% 12.5GM 0.25 GM/ML BTL IV SCH (13:56)
[2021-08-28] MEDS: LINEZOLID 600 MG/D5W 300ML 300 ML IV SCH (13:56)
[2021-08-29] VITALS (25 sets, daily range): BP systolic 91–133; BP diastolic 49–74
[2021-08-29] MEDS: METOCLOPRAMIDE HCL 10 MG/2ML VIAL IV SCH ×5 (03:18→23:08)
[2021-08-29] MEDS: ALBUMIN 25% 12.5GM 0.25 GM/ML BTL IV SCH ×2 (03:18→05:02)
[2021-08-29] MEDS: LINEZOLID 600 MG/D5W 300ML 300 ML IV SCH (03:18)
[2021-08-29] MEDS: MEROPENEM 500 MG in SODIUM CHLORIDE 0.9% 50ML 50 ML IV SCH ×4 (03:18→23:07)
[2021-08-29] MEDS: BUMETANIDE 10 MG in SODIUM CHLORIDE 0.9% 100 ML 60 ML IV SCH ×3 (03:18→08:15)
[2021-08-29 06:12] LABS: BASOPHILS # (AUTO) 0.1 (0.0-0.1); BASOPHILS % 0.4 % (0.0-1.0); EOSINOPHILS # (AUTO) 0.7 (0.0-0.4); EOSINOPHILS % 4.1 % (0.0-6.0); HEMATOCRIT 25.7 % (34.2-44.1); HEMOGLOBIN 7.6 g/dL (12.0-16.0); LYMPHOCYTES # (AUTO) 1.2 (1.0-3.2); LYMPHOCYTES % 6.9 % (18.0-39.1); MEAN CORPUSCULAR HEMOGLOBIN 28.4 pg (28-32); MEAN CORPUSCULAR HGB CONC 29.6 g/dL (31-35); MEAN CORPUSCULAR VOLUME 95.9 fL (81-99); MONOCYTES # (AUTO) 0.7 (0.2-0.8); MONOCYTES % 4.1 % (4.4-11.3); NEUTROPHILS # (AUTO) 14.5 (2.1-6.9); NEUTROPHILS % 83.5 % (38.7-80.0); PLATELET COUNT 155 x10e3/uL (140-360); RED BLOOD COUNT 2.68 x10e6/uL (3.6-5.1); RED CELL DISTRIBUTION WIDTH 17.8 % (11.7-14.4)
[2021-08-29 06:31] LABS: ALBUMIN 3.3 g/dL (3.5-5.0); ANION GAP 13.9 mmol/L (8-16); CALCIUM 9.1 mg/dL (8.4-10.2); CREATININE, SERUM 1.31 mg/dL (0.57-1.11); POTASSIUM 3.9 mmol/L (3.5-5.1)
[2021-08-29] MEDS: HEPARIN 25,000 UNIT 1,000 UNIT in DEXTROSE 5% 250ML 250 ML IV SCH (08:14)
[2021-08-29] MEDS: ASCORBIC ACID 500 MG TAB PO SCH (08:15)
[2021-08-29] MEDS: ZINC SULFATE 220 MG CAP PO SCH (08:15)
[2021-08-29 08:35] LABS: ABG PH 7.18 (7.35-7.45)
[2021-08-29 08:36] LABS: ABG HCO3 34 mmol/L (22-26); ABG PCO2 91 mmHg (35-45); ABG PO2 62 mmHg (80-105); ABG TCO2 36
[2021-08-29] MEDS: MICAFUNGIN SODIUM 100 ML IV SCH (10:21)
[2021-08-29] MEDS: NOREPINEPHRINE 8 MG/D5W 250 ML 250 ML IV SCH (10:25)
[2021-08-29] MEDS: MIDAZOLAM HCL 5MG/ML 10ML VIAL 100 ML IV PRN ×2 (11:54→16:28)
[2021-08-29] MEDS: IRON SUCROSE 100 MG in SODIUM CHLORIDE 0.9% 100 ML 100 ML IV SCH (13:13)
[2021-08-29] MEDS: FENTANYL 2000MCG/NS 250 250 ML IV SCH (14:01)
[2021-08-29] MEDS: MANNITOL 20% IV SCH ×2 (16:04→23:08)
[2021-08-29] MEDS: FUROSEMIDE IV SCH ×2 (16:04→23:08)
[2021-08-29 20:53] LABS: ABG PH 7.16 (7.35-7.45)
[2021-08-29 20:54] LABS: ABG HCO3 29 mmol/L (22-26); ABG PCO2 84 mmHg (35-45); ABG PO2 56 mmHg (80-105); ABG TCO2 32
[2021-08-29] MEDS ORDERED: SODIUM BICARBONATE 8.4% INJ 50 ML SYR IV STA (21:03)
[2021-08-29] MEDS ORDERED: SODIUM BICARBONATE 8.4% SYRING 50 ML ONE (21:15)
[2021-08-30] VITALS (25 sets, daily range): BP systolic 99–141; BP diastolic 47–82
[2021-08-30] MEDS: METOCLOPRAMIDE HCL 10 MG/2ML VIAL IV SCH ×3 (06:01→18:13)
[2021-08-30] MEDS: MEROPENEM 500 MG in SODIUM CHLORIDE 0.9% 50ML 50 ML IV SCH ×2 (06:01→14:00)
[2021-08-30 06:17] LABS: BASOPHILS # (AUTO) 0.1 (0.0-0.1); BASOPHILS % 0.3 % (0.0-1.0); EOSINOPHILS # (AUTO) 0.2 (0.0-0.4); EOSINOPHILS % 1.4 % (0.0-6.0); HEMATOCRIT 25.5 % (34.2-44.1); HEMOGLOBIN 7.5 g/dL (12.0-16.0); LYMPHOCYTES # (AUTO) 0.8 (1.0-3.2); LYMPHOCYTES % 5.5 % (18.0-39.1); MEAN CORPUSCULAR HEMOGLOBIN 27.8 pg (28-32); MEAN CORPUSCULAR HGB CONC 29.4 g/dL (31-35); MEAN CORPUSCULAR VOLUME 94.4 fL (81-99); MONOCYTES # (AUTO) 0.7 (0.2-0.8); MONOCYTES % 4.5 % (4.4-11.3); NEUTROPHILS # (AUTO) 13.1 (2.1-6.9); NEUTROPHILS % 86.3 % (38.7-80.0); PLATELET COUNT 154 x10e3/uL (140-360); RED CELL DISTRIBUTION WIDTH 17.9 % (11.7-14.4)
[2021-08-30 06:47] LABS: ALBUMIN 2.5 g/dL (3.5-5.0); ALBUMIN/GLOBULIN RATIO 0.8 (0.8-2.0); ANION GAP 15.7 mmol/L (8-16); CREATININE, SERUM 1.46 mg/dL (0.57-1.11); POTASSIUM 3.7 mmol/L (3.5-5.1)
[2021-08-30 07:42] LABS: ABG HCO3 31 mmol/L (22-26); ABG PCO2 74 mmHg (35-45); ABG PH 7.22 (7.35-7.45); ABG PO2 57 mmHg (80-105); ABG TCO2 33
[2021-08-30] MEDS: ZINC SULFATE 220 MG CAP PO SCH (08:35)
[2021-08-30] MEDS: ASCORBIC ACID 500 MG TAB PO SCH (08:35)
[2021-08-30] MEDS: MANNITOL 20% IV SCH ×2 (08:37→19:39)
[2021-08-30] MEDS: FUROSEMIDE IV SCH ×2 (08:37→19:39)
[2021-08-30] MEDS: ROCURONIUM 1250MG/NS 250 250 ML IV PRN (09:08)
[2021-08-30] MEDS: FENTANYL 2000MCG/NS 250 250 ML IV SCH ×2 (09:09→16:02)
[2021-08-30] MEDS: MIDAZOLAM HCL 5MG/ML 10ML VIAL 100 ML IV PRN ×2 (09:10→16:03)
[2021-08-30] MEDS ORDERED: ALBUMIN 25% 12.5GM 0.25 GM/ML BTL IV ONE (11:15)
[2021-08-30] MEDS ORDERED: ALBUMIN 25% 12.5GM 50ML 200 ML IV ONE (12:00)
[2021-08-30] MEDS: NOREPINEPHRINE 8 MG/D5W 250 ML 250 ML IV SCH (13:00)
[2021-08-30 13:05] LABS: ABG PCO2 76 mmHg (35-45); ABG PH 7.19 (7.35-7.45); ABG PO2 61 mmHg (80-105)
[2021-08-30 13:06] LABS: ABG HCO3 29 mmol/L (22-26); ABG TCO2 31
[2021-08-30] MEDS: IRON SUCROSE 100 MG in SODIUM CHLORIDE 0.9% 100 ML 100 ML IV SCH (13:59)
[2021-08-30] MEDS ORDERED: HEPARIN SOD (PORCINE) 1000 UNIT/ML SDV ONE (15:29)
[2021-08-30] MEDS: HEPARIN 25,000 UNIT 1,000 UNIT in DEXTROSE 5% 250ML 250 ML IV SCH (18:45)
[2021-08-31] VITALS (24 sets, daily range): BP systolic 86–135; BP diastolic 41–73
[2021-08-31] MEDS: METOCLOPRAMIDE HCL 10 MG/2ML VIAL IV SCH ×4 (00:35→16:54)
[2021-08-31] MEDS: LACTULOSE SYRUP 20 GM/30 ML UDC PO PRN ×2 (00:54→09:19)
[2021-08-31] MEDS: MANNITOL 20% IV SCH (06:06)
[2021-08-31] MEDS: FUROSEMIDE IV SCH (06:06)
[2021-08-31 08:35] LABS: ABG PH 7.18 (7.35-7.45)
[2021-08-31 08:36] LABS: ABG HCO3 26 mmol/L (22-26); ABG PCO2 70 mmHg (35-45); ABG PO2 64 mmHg (80-105); ABG TCO2 28
[2021-08-31] MEDS: ZINC SULFATE 220 MG CAP PO SCH (09:18)
[2021-08-31] MEDS: ASCORBIC ACID 500 MG TAB PO SCH (09:18)
[2021-08-31] MEDS: NOREPINEPHRINE 8 MG/D5W 250 ML 250 ML IV SCH (10:30)
[2021-08-31 10:31] LABS: BASOPHILS # (AUTO) 0.1 (0.0-0.1); BASOPHILS % 0.4 % (0.0-1.0); EOSINOPHILS # (AUTO) 0.1 (0.0-0.4); EOSINOPHILS % 0.4 % (0.0-6.0); HEMATOCRIT 24.9 % (34.2-44.1); HEMOGLOBIN 7.1 g/dL (12.0-16.0); LYMPHOCYTES # (AUTO) 1.5 (1.0-3.2); LYMPHOCYTES % 8.8 % (18.0-39.1); MEAN CORPUSCULAR HEMOGLOBIN 28.1 pg (28-32); MEAN CORPUSCULAR HGB CONC 28.5 g/dL (31-35); MEAN CORPUSCULAR VOLUME 98.4 fL (81-99); MONOCYTES # (AUTO) 1.1 (0.2-0.8); MONOCYTES % 6.4 % (4.4-11.3); NEUTROPHILS # (AUTO) 14.1 (2.1-6.9); NEUTROPHILS % 82.6 % (38.7-80.0); PLATELET COUNT 112 x10e3/uL (140-360); RED BLOOD COUNT 2.53 x10e6/uL (3.6-5.1); RED CELL DISTRIBUTION WIDTH 18.6 % (11.7-14.4)
[2021-08-31] MEDS ORDERED: HEPARIN SOD (PORCINE) 1000 UNIT/ML SDV ONE (10:45)
[2021-08-31 11:02] LABS: ALBUMIN/GLOBULIN RATIO 1.1 (0.8-2.0); ANION GAP 19.4 mmol/L (8-16); CALCIUM 8.1 mg/dL (8.4-10.2); CREATININE, SERUM 2.16 mg/dL (0.57-1.11); POTASSIUM 4.4 mmol/L (3.5-5.1)
[2021-08-31] MEDS: FENTANYL 2000MCG/NS 250 250 ML IV SCH ×2 (13:16→20:04)
[2021-08-31] MEDS: IRON SUCROSE 100 MG in SODIUM CHLORIDE 0.9% 100 ML 100 ML IV SCH (13:16)
[2021-08-31] MEDS: MIDAZOLAM HCL 5MG/ML 10ML VIAL 100 ML IV PRN (13:19)
[2021-08-31] MEDS ORDERED: ALBUMIN 25% 12.5GM 50ML 150 ML IV ONE (13:30)
[2021-08-31] MEDS ORDERED: ALBUMIN 25% 12.5GM 0.25 GM/ML BTL IV ONE (13:30)
[2021-08-31] MEDS: HEPARIN 25,000 UNIT 1,000 UNIT in DEXTROSE 5% 250ML 250 ML IV SCH (14:26)
[2021-08-31] MEDS: MEROPENEM 500 MG in SODIUM CHLORIDE 0.9% 50ML 50 ML IV SCH (16:54)
[2021-09-01] VITALS (19 sets, daily range): BP systolic 104–145; BP diastolic 47–75
[2021-09-01] MEDS: METOCLOPRAMIDE HCL 10 MG/2ML VIAL IV SCH ×3 (05:06→17:11)
[2021-09-01 05:33] LABS: BASOPHILS # (AUTO) 0.1 (0.0-0.1); BASOPHILS % 0.4 % (0.0-1.0); EOSINOPHILS # (AUTO) 0.3 (0.0-0.4); HEMATOCRIT 23.7 % (34.2-44.1); LYMPHOCYTES # (AUTO) 1.6 (1.0-3.2); LYMPHOCYTES % 12.3 % (18.0-39.1); MEAN CORPUSCULAR HEMOGLOBIN 28.4 pg (28-32); MEAN CORPUSCULAR HGB CONC 28.3 g/dL (31-35); MEAN CORPUSCULAR VOLUME 100.4 fL (81-99); MONOCYTES # (AUTO) 0.9 (0.2-0.8); MONOCYTES % 6.7 % (4.4-11.3); NEUTROPHILS # (AUTO) 10.2 (2.1-6.9); NEUTROPHILS % 77.6 % (38.7-80.0); PLATELET COUNT 80 x10e3/uL (140-360); RED BLOOD COUNT 2.36 x10e6/uL (3.6-5.1); RED CELL DISTRIBUTION WIDTH 18.7 % (11.7-14.4)
[2021-09-01 05:45] LABS: HEMOGLOBIN 6.7 g/dL (12.0-16.0)
[2021-09-01 05:59] LABS: ALBUMIN 3.5 g/dL (3.5-5.0); ALBUMIN/GLOBULIN RATIO 1.4 (0.8-2.0); ANION GAP 20.2 mmol/L (8-16); CALCIUM 8.7 mg/dL (8.4-10.2); CREATININE, SERUM 2.69 mg/dL (0.57-1.11); POTASSIUM 4.2 mmol/L (3.5-5.1)
[2021-09-01] MEDS ORDERED: HEPARIN 25,000 UNIT 25,000 UNIT in DEXTROSE 5% 250ML 250 ML IV SCH ×2 (06:30→06:45)
[2021-09-01] MEDS ORDERED: SODIUM CHLORIDE 0.9% 250ML 250 ML IV ONE (06:30)
[2021-09-01] MEDS: DEXTROSE 5% IV SCH (06:45)
[2021-09-01] MEDS: HEPARIN IV SCH (06:45)
[2021-09-01 07:32] LABS: BAND NEUTROPHILS % (MANUAL) 2 %; EOSINOPHILS % (MANUAL) 1 % (0-7); LYMPHOCYTES % (MANUAL) 13 % (19-48); MONOCYTES % (MANUAL) 2 % (3.4-9.0); NEUTROPHILS % (MANUAL) 81 % (40-74); NUCLEATED RED BLOOD CELLS 1
[2021-09-01 07:34] LABS: PLATELET ESTIMATE MODERATELY DECREASED; PLATELET MORPHOLOGY COMMENT NORMAL
[2021-09-01 07:35] LABS: RBC MORPHOLOGY COMMENT NORMAL
[2021-09-01 07:56] LABS: ABG PH 7.11 (7.35-7.45)
[2021-09-01 07:57] LABS: ABG HCO3 25 mmol/L (22-26); ABG PCO2 79 mmHg (35-45); ABG PO2 94 mmHg (80-105); ABG TCO2 28
[2021-09-01] MEDS: MIDAZOLAM HCL 5MG/ML 10ML VIAL 100 ML IV PRN ×2 (08:00→21:04)
[2021-09-01] MEDS: FENTANYL 2000MCG/NS 250 250 ML IV SCH (08:30)
[2021-09-01] MEDS ORDERED: SODIUM CHLORIDE 0.9% 250ML 250 ML ONE (08:48)
[2021-09-01] MEDS ORDERED: SODIUM BICARBONATE 8.4% INJ 50 ML SYR IV NR (09:15)
[2021-09-01] MEDS: ASCORBIC ACID 500 MG TAB PO SCH (09:30)
[2021-09-01] MEDS: ZINC SULFATE 220 MG CAP PO SCH (09:30)
[2021-09-01] MEDS: NOREPINEPHRINE 8 MG/D5W 250 ML 250 ML IV SCH (10:40)
[2021-09-01 11:14] LABS: ABG HCO3 25 mmol/L (22-26); ABG PCO2 58 mmHg (35-45); ABG PH 7.24 (7.35-7.45); ABG PO2 72 mmHg (80-105); ABG TCO2 27
[2021-09-01] MEDS: IRON SUCROSE 100 MG in SODIUM CHLORIDE 0.9% 100 ML 100 ML IV SCH (12:28)
[2021-09-01] MEDS ORDERED: HEPARIN SOD (PORCINE) 1000 UNIT/ML SDV ONE (15:19)
[2021-09-01] MEDS ORDERED: SODIUM CHLORIDE 0.9% 1000ML 1,000 ML ONE (15:20)
[2021-09-01] MEDS: MEROPENEM 500 MG in SODIUM CHLORIDE 0.9% 50ML 50 ML IV SCH (17:11)
[2021-09-02] VITALS (27 sets, daily range): BP systolic 94–141; BP diastolic 41–64
[2021-09-02] MEDS: METOCLOPRAMIDE HCL 10 MG/2ML VIAL IV SCH ×5 (00:32→23:49)
[2021-09-02 06:35] LABS: BASOPHILS # (AUTO) 0.1 (0.0-0.1); BASOPHILS % 0.5 % (0.0-1.0); EOSINOPHILS # (AUTO) 0.9 (0.0-0.4); EOSINOPHILS % 9.7 % (0.0-6.0); HEMATOCRIT 26.4 % (34.2-44.1); HEMOGLOBIN 7.9 g/dL (12.0-16.0); LYMPHOCYTES # (AUTO) 1.2 (1.0-3.2); LYMPHOCYTES % 13.1 % (18.0-39.1); MEAN CORPUSCULAR HEMOGLOBIN 28.2 pg (28-32); MEAN CORPUSCULAR HGB CONC 29.9 g/dL (31-35); MEAN CORPUSCULAR VOLUME 94.3 fL (81-99); MONOCYTES # (AUTO) 0.7 (0.2-0.8); MONOCYTES % 7.1 % (4.4-11.3); NEUTROPHILS # (AUTO) 6.4 (2.1-6.9); NEUTROPHILS % 68.3 % (38.7-80.0); PLATELET COUNT 51 x10e3/uL (140-360); RED CELL DISTRIBUTION WIDTH 18.6 % (11.7-14.4)
[2021-09-02 06:41] LABS: ALBUMIN 3.6 g/dL (3.5-5.0); ALBUMIN/GLOBULIN RATIO 1.6 (0.8-2.0); ANION GAP 18.4 mmol/L (8-16); CALCIUM 8.7 mg/dL (8.4-10.2); CREATININE, SERUM 2.82 mg/dL (0.57-1.11); POTASSIUM 3.4 mmol/L (3.5-5.1)
[2021-09-02] MEDS: HEPARIN IV SCH (07:00)
[2021-09-02] MEDS: DEXTROSE 5% IV SCH (07:00)
[2021-09-02] MEDS: ZINC SULFATE 220 MG CAP PO SCH (08:00)
[2021-09-02] MEDS: ASCORBIC ACID 500 MG TAB PO SCH (08:00)
[2021-09-02] MEDS: MIDAZOLAM HCL 5MG/ML 10ML VIAL 100 ML IV PRN ×4 (08:40→20:33)
[2021-09-02] MEDS: FENTANYL 2000MCG/NS 250 250 ML IV SCH ×2 (08:41→18:01)
[2021-09-02 08:55] LABS: ABG HCO3 24 mmol/L (22-26); ABG PCO2 50 mmHg (35-45); ABG PH 7.28 (7.35-7.45); ABG PO2 127 mmHg (80-105); ABG TCO2 25
[2021-09-02] MEDS: NOREPINEPHRINE 8 MG/D5W 250 ML 250 ML IV SCH (10:30)
[2021-09-02] MEDS: IRON SUCROSE 100 MG in SODIUM CHLORIDE 0.9% 100 ML 100 ML IV SCH (14:00)
[2021-09-02 15:57] LABS: ABG HCO3 22 mmol/L (22-26); ABG PCO2 43 mmHg (35-45); ABG PH 7.31 (7.35-7.45); ABG PO2 73 mmHg (80-105); ABG TCO2 43.4
[2021-09-02] MEDS: MEROPENEM 500 MG in SODIUM CHLORIDE 0.9% 50ML 50 ML IV SCH (17:36)
[2021-09-03] VITALS (27 sets, daily range): BP systolic 101–134; BP diastolic 45–53
[2021-09-03] MEDS: ROCURONIUM 1250MG/NS 250 250 ML IV PRN (00:03)
[2021-09-03] MEDS: MIDAZOLAM HCL 5MG/ML 10ML VIAL 100 ML IV PRN ×5 (01:06→22:37)
[2021-09-03] MEDS: METOCLOPRAMIDE HCL 10 MG/2ML VIAL IV SCH ×4 (05:45→23:03)
[2021-09-03 06:11] LABS: BASOPHILS % 0.5 % (0.0-1.0); HEMATOCRIT 25.4 % (34.2-44.1); MEAN CORPUSCULAR HEMOGLOBIN 28.7 pg (28-32); MEAN CORPUSCULAR HGB CONC 31.5 g/dL (31-35); MONOCYTES # (AUTO) 0.4 (0.2-0.8); MONOCYTES % 4.2 % (4.4-11.3); NEUTROPHILS # (AUTO) 5.6 (2.1-6.9); NEUTROPHILS % 67.5 % (38.7-80.0); PLATELET COUNT 58 x10e3/uL (140-360); RED BLOOD COUNT 2.79 x10e6/uL (3.6-5.1)
[2021-09-03 06:32] LABS: ALBUMIN/GLOBULIN RATIO 1.3 (0.8-2.0); ANION GAP 18.4 mmol/L (8-16); CALCIUM 8.4 mg/dL (8.4-10.2); CREATININE, SERUM 2.59 mg/dL (0.57-1.11)
[2021-09-03 06:33] LABS: POTASSIUM 2.4 mmol/L (3.5-5.1)
[2021-09-03] MEDS ORDERED: POTASSIUM CHLORIDE 20MEQ/100ML 200 ML IV ONE (07:30)
[2021-09-03 07:34] LABS: ABG HCO3 26 mmol/L (22-26); ABG PCO2 51 mmHg (35-45); ABG PH 7.32 (7.35-7.45); ABG PO2 81 mmHg (80-105); ABG TCO2 28
[2021-09-03] MEDS: ASCORBIC ACID 500 MG TAB PO SCH (08:00)
[2021-09-03] MEDS: ZINC SULFATE 220 MG CAP PO SCH (08:00)
[2021-09-03] MEDS: DEXTROSE 5% IV SCH (08:30)
[2021-09-03] MEDS: HEPARIN IV SCH (08:30)
[2021-09-03] MEDS: FENTANYL 2000MCG/NS 250 250 ML IV SCH ×3 (09:15→23:04)
[2021-09-03] MEDS: NOREPINEPHRINE 8 MG/D5W 250 ML 250 ML IV SCH (10:30)
[2021-09-03] MEDS ORDERED: MAGNESIUM SULFATE 2GM/50ML 50 ML IV ONE (12:00)
[2021-09-03] MEDS: IRON SUCROSE 100 MG in SODIUM CHLORIDE 0.9% 100 ML 100 ML IV SCH (13:34)
[2021-09-03] MEDS: MEROPENEM 500 MG in SODIUM CHLORIDE 0.9% 50ML 50 ML IV SCH (17:30)
[2021-09-03] MEDS ORDERED: MAGNESIUM SULF 1GRAM/DEXTROSE 100 ML IV ONE (18:00)
[2021-09-04] VITALS (25 sets, daily range): BP systolic 94–128; BP diastolic 41–57
[2021-09-04] MEDS: ROCURONIUM 1250MG/NS 250 250 ML IV PRN (01:26)
[2021-09-04] MEDS: MIDAZOLAM HCL 5MG/ML 10ML VIAL 100 ML IV PRN ×3 (04:05→19:44)
[2021-09-04] MEDS: FENTANYL 2000MCG/NS 250 250 ML IV SCH ×3 (05:44→19:45)
[2021-09-04 05:57] LABS: BASOPHILS % 0.3 % (0.0-1.0); EOSINOPHILS # (AUTO) 0.7 (0.0-0.4); EOSINOPHILS % 9.1 % (0.0-6.0); HEMATOCRIT 26.2 % (34.2-44.1); HEMOGLOBIN 8.2 g/dL (12.0-16.0); LYMPHOCYTES # (AUTO) 1.2 (1.0-3.2); LYMPHOCYTES % 14.7 % (18.0-39.1); MEAN CORPUSCULAR HGB CONC 31.3 g/dL (31-35); MEAN CORPUSCULAR VOLUME 92.6 fL (81-99); MONOCYTES # (AUTO) 0.4 (0.2-0.8); MONOCYTES % 5.2 % (4.4-11.3); NEUTROPHILS # (AUTO) 5.2 (2.1-6.9); NEUTROPHILS % 65.5 % (38.7-80.0); PLATELET COUNT 63 x10e3/uL (140-360); RED BLOOD COUNT 2.83 x10e6/uL (3.6-5.1); RED CELL DISTRIBUTION WIDTH 17.9 % (11.7-14.4)
[2021-09-04] MEDS: METOCLOPRAMIDE HCL 10 MG/2ML VIAL IV SCH ×3 (06:00→18:15)
[2021-09-04 06:26] LABS: ALBUMIN 2.7 g/dL (3.5-5.0); ALBUMIN/GLOBULIN RATIO 1.1 (0.8-2.0); ANION GAP 16.5 mmol/L (8-16); CALCIUM 8.3 mg/dL (8.4-10.2); CREATININE, SERUM 2.15 mg/dL (0.57-1.11)
[2021-09-04 06:34] LABS: POTASSIUM 2.5 mmol/L (3.5-5.1)
[2021-09-04] MEDS ORDERED: POTASSIUM CHLORIDE 20MEQ/100ML 200 ML IV ONE ×2 (06:45→11:00)
[2021-09-04] MEDS: HEPARIN IV SCH (06:47)
[2021-09-04] MEDS: DEXTROSE 5% IV SCH (06:47)
[2021-09-04 07:05] LABS: MAGNESIUM 1.7 MG/DL (1.3-2.1); PHOSPHORUS 4.4 MG/DL (2.3-4.7)
[2021-09-04 08:17] LABS: ABG PCO2 55 mmHg (35-45); ABG PH 7.33 (7.35-7.45); ABG PO2 72 mmHg (80-105)
[2021-09-04 08:18] LABS: ABG HCO3 29 mmol/L (22-26); ABG TCO2 31
[2021-09-04] MEDS: ASCORBIC ACID 500 MG TAB PO SCH (08:53)
[2021-09-04] MEDS: ZINC SULFATE 220 MG CAP PO SCH (08:53)
[2021-09-04 09:03] LABS: BAND NEUTROPHILS % (MANUAL) 7 %; EOSINOPHILS % (MANUAL) 2 % (0-7); LYMPHOCYTES % (MANUAL) 7 % (19-48); MONOCYTES % (MANUAL) 5 % (3.4-9.0); NEUTROPHILS % (MANUAL) 79 % (40-74); NUCLEATED RED BLOOD CELLS 1
[2021-09-04 09:04] LABS: ANISOCYTOSIS MODERATE; HYPOCHROMASIA SLIGHT; PLATELET ESTIMATE MODERATELY DECREASED; PLATELET MORPHOLOGY COMMENT NORMAL; POLYCHROMASIA FEW; RBC MORPHOLOGY COMMENT ABNORMAL
[2021-09-04] MEDS ORDERED: BUMETANIDE INJ 0.25MG/ML 4ML VIAL IV ONE (10:15)
[2021-09-04] MEDS: NOREPINEPHRINE 8 MG/D5W 250 ML 250 ML IV SCH (10:30)
[2021-09-04] MEDS ORDERED: MAGNESIUM SULFATE 2GM/50ML 50 ML IV ONE (11:00)
[2021-09-04] MEDS: SPIRONOLACTONE 25 MG TAB PO SCH ×2 (12:38→21:07)
[2021-09-04] MEDS: IRON SUCROSE 100 MG in SODIUM CHLORIDE 0.9% 100 ML 100 ML IV SCH (12:39)
[2021-09-04] MEDS ORDERED: MAGNESIUM SULF 1GRAM/DEXTROSE 100 ML IV ONE (13:00)
[2021-09-04 17:30] LABS: MAGNESIUM 2.4 MG/DL (1.3-2.1); POTASSIUM 3.5 mmol/L (3.5-5.1)
[2021-09-04] MEDS ORDERED: POTASSIUM CHLORIDE 20MEQ/100ML 100 ML IV ONE (18:00)
[2021-09-04] MEDS: MEROPENEM 500 MG in SODIUM CHLORIDE 0.9% 50ML 50 ML IV SCH (18:14)
[2021-09-05] VITALS (27 sets, daily range): BP systolic 93–131; BP diastolic 43–56
[2021-09-05] MEDS: METOCLOPRAMIDE HCL 10 MG/2ML VIAL IV SCH ×4 (00:31→17:15)
[2021-09-05] MEDS: FENTANYL 2000MCG/NS 250 250 ML IV SCH ×3 (02:29→16:28)
[2021-09-05] MEDS: ROCURONIUM 1250MG/NS 250 250 ML IV PRN (04:45)
[2021-09-05] MEDS: MIDAZOLAM HCL 5MG/ML 10ML VIAL 100 ML IV PRN ×3 (06:11→16:28)
[2021-09-05] MEDS: DEXTROSE 5% IV SCH (06:45)
[2021-09-05] MEDS: HEPARIN IV SCH (06:45)
[2021-09-05 06:47] LABS: BASOPHILS # (AUTO) 0.1 (0.0-0.1); BASOPHILS % 0.6 % (0.0-1.0); EOSINOPHILS # (AUTO) 1.3 (0.0-0.4); EOSINOPHILS % 12.8 % (0.0-6.0); HEMATOCRIT 28.3 % (34.2-44.1); HEMOGLOBIN 8.6 g/dL (12.0-16.0); LYMPHOCYTES # (AUTO) 1.4 (1.0-3.2); LYMPHOCYTES % 13.4 % (18.0-39.1); MEAN CORPUSCULAR HEMOGLOBIN 28.5 pg (28-32); MEAN CORPUSCULAR HGB CONC 30.4 g/dL (31-35); MEAN CORPUSCULAR VOLUME 93.7 fL (81-99); MONOCYTES # (AUTO) 0.6 (0.2-0.8); MONOCYTES % 5.6 % (4.4-11.3); NEUTROPHILS # (AUTO) 6.2 (2.1-6.9); NEUTROPHILS % 59.6 % (38.7-80.0); PLATELET COUNT 87 x10e3/uL (140-360); RED BLOOD COUNT 3.02 x10e6/uL (3.6-5.1); RED CELL DISTRIBUTION WIDTH 18.6 % (11.7-14.4)
[2021-09-05 07:07] LABS: ALBUMIN 2.6 g/dL (3.5-5.0); ALBUMIN/GLOBULIN RATIO 0.9 (0.8-2.0); ANION GAP 13.3 mmol/L (8-16); CALCIUM 8.6 mg/dL (8.4-10.2); CREATININE, SERUM 1.64 mg/dL (0.57-1.11); POTASSIUM 3.3 mmol/L (3.5-5.1)
[2021-09-05 08:05] LABS: ABG HCO3 32 mmol/L (22-26); ABG PCO2 65 mmHg (35-45); ABG PO2 67 mmHg (80-105); ABG TCO2 34
[2021-09-05] MEDS: ZINC SULFATE 220 MG CAP PO SCH (08:30)
[2021-09-05] MEDS: ASCORBIC ACID 500 MG TAB PO SCH (08:30)
[2021-09-05] MEDS: BALSAM PERU/CASTOR OIL 60 GM OINT...G. TP SCH (08:30)
[2021-09-05 08:46] LABS: BAND NEUTROPHILS % (MANUAL) 11 %; EOSINOPHILS % (MANUAL) 13 % (0-7); LYMPHOCYTES % (MANUAL) 9 % (19-48); MONOCYTES % (MANUAL) 2 % (3.4-9.0); NEUTROPHILS % (MANUAL) 65 % (40-74); NUCLEATED RED BLOOD CELLS 2
[2021-09-05 08:47] LABS: HYPOCHROMASIA MODERATE; PLATELET ESTIMATE MODERATELY DECREASED; PLATELET MORPHOLOGY COMMENT FEW GIANT; RBC MORPHOLOGY COMMENT ABNORMAL
[2021-09-05 08:48] LABS: ANISOCYTOSIS SLIGHT; POIKILOCYTOSIS SLIGHT; POLYCHROMASIA FEW
[2021-09-05] MEDS: SPIRONOLACTONE 25 MG TAB PO SCH ×3 (09:20→22:14)
[2021-09-05] MEDS: IRON SUCROSE 100 MG in SODIUM CHLORIDE 0.9% 100 ML 100 ML IV SCH (12:06)
[2021-09-05] MEDS ORDERED: POTASSIUM CHLORIDE 10MEQ/100ML 200 ML IV ONE (13:00)
[2021-09-05] MEDS ORDERED: POTASSIUM CHLORIDE 20MEQ/100ML 100 ML IV ONE ×2 (13:00)
[2021-09-05] MEDS: NOREPINEPHRINE 8 MG/D5W 250 ML 250 ML IV SCH (14:57)
[2021-09-05] MEDS: MEROPENEM 500 MG in SODIUM CHLORIDE 0.9% 50ML 50 ML IV SCH (17:15)
[2021-09-06] VITALS (37 sets, daily range): BP systolic 40–131; BP diastolic 24–74
[2021-09-06] MEDS: METOCLOPRAMIDE HCL 10 MG/2ML VIAL IV SCH ×4 (01:48→17:54)
[2021-09-06 06:06] LABS: BASOPHILS # (AUTO) 0.1 (0.0-0.1); BASOPHILS % 0.9 % (0.0-1.0); EOSINOPHILS # (AUTO) 0.9 (0.0-0.4); EOSINOPHILS % 7.9 % (0.0-6.0); HEMATOCRIT 28.4 % (34.2-44.1); HEMOGLOBIN 8.7 g/dL (12.0-16.0); LYMPHOCYTES # (AUTO) 1.3 (1.0-3.2); LYMPHOCYTES % 11.5 % (18.0-39.1); MEAN CORPUSCULAR HEMOGLOBIN 29.2 pg (28-32); MEAN CORPUSCULAR HGB CONC 30.6 g/dL (31-35); MEAN CORPUSCULAR VOLUME 95.3 fL (81-99); MONOCYTES # (AUTO) 0.6 (0.2-0.8); MONOCYTES % 5.3 % (4.4-11.3); NEUTROPHILS # (AUTO) 7.2 (2.1-6.9); NEUTROPHILS % 64.6 % (38.7-80.0); PLATELET COUNT 109 x10e3/uL (140-360); RED BLOOD COUNT 2.98 x10e6/uL (3.6-5.1); RED CELL DISTRIBUTION WIDTH 20.9 % (11.7-14.4)
[2021-09-06 06:31] LABS: ALBUMIN 2.3 g/dL (3.5-5.0); ALBUMIN/GLOBULIN RATIO 0.7 (0.8-2.0); ANION GAP 11.1 mmol/L (8-16); CALCIUM 8.1 mg/dL (8.4-10.2); CREATININE, SERUM 1.26 mg/dL (0.57-1.11); POTASSIUM 4.1 mmol/L (3.5-5.1)
[2021-09-06] MEDS: HEPARIN IV SCH (06:45)
[2021-09-06] MEDS: DEXTROSE 5% IV SCH (06:45)
[2021-09-06] MEDS: MIDAZOLAM HCL 5MG/ML 10ML VIAL 100 ML IV PRN ×3 (08:00→18:16)
[2021-09-06 08:19] LABS: ABG HCO3 30 mmol/L (22-26); ABG PCO2 65 mmHg (35-45); ABG PH 7.27 (7.35-7.45); ABG PO2 54 mmHg (80-105); ABG TCO2 32
[2021-09-06] MEDS: ZINC SULFATE 220 MG CAP PO SCH (08:39)
[2021-09-06] MEDS: ASCORBIC ACID 500 MG TAB PO SCH (08:39)
[2021-09-06] MEDS: BALSAM PERU/CASTOR OIL 60 GM OINT...G. TP SCH (08:39)
[2021-09-06] MEDS: SPIRONOLACTONE 25 MG TAB PO SCH ×3 (08:39→20:55)
[2021-09-06] MEDS ORDERED: DEXTROSE 5% IV SCH (10:45)
[2021-09-06] MEDS ORDERED: HEPARIN IV SCH (10:45)
[2021-09-06] MEDS ORDERED: VASOPRESSIN 60 UNIT in DEXTROSE 5% 50ML 57 ML IV PRN (12:00)
[2021-09-06] MEDS: IRON SUCROSE 100 MG in SODIUM CHLORIDE 0.9% 100 ML 100 ML IV SCH (12:03)
[2021-09-06] MEDS: NOREPINEPHRINE 8 MG/D5W 250 ML 250 ML IV SCH (12:03)
[2021-09-06] MEDS: FENTANYL 2000MCG/NS 250 250 ML IV SCH ×2 (12:26→18:37)
[2021-09-06] MEDS: PHENYLEPHRINE 10MG/ML VIAL 40 MG in DEXTROSE 5% 250ML 250 ML IV PRN ×2 (13:45→18:16)
[2021-09-06] MEDS ORDERED: PHENYLEPHRINE HCL IV ONE (13:49)
[2021-09-06] MEDS ORDERED: NACL 0.9% IV ONE (13:49)
[2021-09-06] MEDS: MEROPENEM 500 MG in SODIUM CHLORIDE 0.9% 50ML 50 ML IV SCH (17:54)
[2021-09-06] MEDS ORDERED: PHENYLEPHRINE HCL IN 0.9% NACL 250 ML IV ONE (22:02)
== END 2021-09-07 02:45 | disposition expired | DRG 870 ==
LOC: ER 05:56 → ICU 11:56 → COVIDICU 08-18 13:11 → ICU 09-06 18:10
PROVIDERS: ADMIT Internal Medicine; ATTEND Internal Medicine
PROC: 02HV33Z Insertion of Infusion Device into Superior Vena Cava, Percutaneous Approach (ICD-10-PCS; 2021-08-11)
PROC: 3E0333Z Introduction of Anti-inflammatory into Peripheral Vein, Percutaneous Approach (ICD-10-PCS; 2021-08-11)
PROC: 5A1955Z Respiratory Ventilation, Greater than 96 Consecutive Hours (ICD-10-PCS; principal; 2021-08-13)
PROC: 0BH17EZ Insertion of Endotracheal Airway into Trachea, Via Natural or Artificial Opening (ICD-10-PCS; 2021-08-13)
PROC: 3E043XZ Introduction of Vasopressor into Central Vein, Percutaneous Approach (ICD-10-PCS; 2021-08-13)
PROC: 03HB33Z Insertion of Infusion Device into Right Radial Artery, Percutaneous Approach (ICD-10-PCS; 2021-08-16)
PROC: 30233N1 Transfusion of Nonautologous Red Blood Cells into Peripheral Vein, Percutaneous Approach (ICD-10-PCS; 2021-08-18)
PROC: 02HV33Z Insertion of Infusion Device into Superior Vena Cava, Percutaneous Approach (ICD-10-PCS; 2021-08-30)
PROC: B548ZZA Ultrasonography of Superior Vena Cava, Guidance (ICD-10-PCS; 2021-08-30)
PROC: 5A1D70Z Performance of Urinary Filtration, Intermittent, Less than 6 Hours Per Day (ICD-10-PCS; 2021-08-30)
DX: A41.9 Sepsis, unspecified organism (principal); U07.1 COVID-19; J12.82 Pneumonia due to coronavirus disease 2019; J96.01 Acute respiratory failure with hypoxia; J15.9 Unspecified bacterial pneumonia; I26.99 Other pulmonary embolism without acute cor pulmonale; N17.0 Acute kidney failure with tubular necrosis; R65.21 Severe sepsis with septic shock; K72.00 Acute and subacute hepatic failure without coma; N17.9 Acute kidney failure, unspecified; E87.1 Hypo-osmolality and hyponatremia; I82.611 Acute embolism and thrombosis of superficial veins of right upper extremity; K62.5 Hemorrhage of anus and rectum; R57.9 Shock, unspecified; J95.851 Ventilator associated pneumonia; D62 Acute posthemorrhagic anemia; E78.5 Hyperlipidemia, unspecified; Z88.8 Allergy status to other drugs, medicaments and biological substances; D64.9 Anemia, unspecified; G89.29 Other chronic pain; R79.89 Other specified abnormal findings of blood chemistry; R74.01 Elevation of levels of liver transaminase levels; E87.6 Hypokalemia; R65.20 Severe sepsis without septic shock; D69.6 Thrombocytopenia, unspecified; I12.9 Hypertensive chronic kidney disease with stage 1 through stage 4 chronic kidney disease, or unspecified chronic kidney disease; N18.30 Chronic kidney disease, stage 3 unspecified; Z66 Do not resuscitate; Y95 Nosocomial condition
CPT/HCPCS: 31500; 36415; 36569; 36600; 71045; 71260; 74018; 76770; 80048; 80053; 80202; 81001; 82550; 82553; 82570; 82607; 82746; 82805; 82948; 83540; 83735; 83880; 84100; 84132; 84300; 84466; 84484; 85025; 85045; 85379; 85610; 85730; 86705; 86706; 86850; 86900; 86920; 87040; 87340; 90962; 92950; 93005; 93306; 93971; 94002; 94003; 94640; 94660; 96365; 99251; 99285; J0330; J0360; J0456; J0696; J1100; J1644; J1650; J1756; J1940; J2020; J2185; J2248; J2250; J2370; J2765; J2997; J3370; J3475; J3480; J7030; J7050; J7070; J7121; P9016; P9045; P9047; Q9967; U0002